=== PATIENT | female | born 1950 | race Caucasian/White ===

== ENCOUNTER 2018-01-09 15:42 | Emergency (ER) | payer MEDICAID, SELFPAY ==
[2018-01-09 15:43] VITALS: BP 157/76; PULSE 59; RESP 18; TEMP 36.6; O2SAT 92; BMI 23.8
--- NOTE | 2018-01-09 16:18 | ED.DCSUM_ITS ---
History of Present Illness Chief Complaint: Cold Sx Informant: Patient Onset: Weeks - 2 Context: Gradual Onset Timing: Continuous Quality: prod cough, congestion Current Severity: Moderate Maximum Severity: Moderate Worsened by: exertion Relieved by: rest Associated Symptoms: subj fevers in beginning now resolved. inc COPD sx/wheezing. no cp. Narrative: Green sputum per nose and coughing up. no leg edema or orthopnea. Has not been seen for this illness yet; PCP on recent maternity leave. Hx of diabetes, states her BS's are well-controlled, except for when she takes prednisone, which she wants to avoid. Prior similar symptoms: Yes - Past Medical History (1) Benign essential HTN Status: Chronic (2) Compression fracture of vertebral column Status: Chronic (3) DM type 2 (diabetes mellitus, type 2) Status: Chronic (4) Diverticulosis of colon without diverticulitis Status: Chronic (5) Hyperlipemia Status: Chronic Past Medical History - Allergies and Home Meds Allergies/Adverse Reactions: Allergies Penicillins Allergy (Verified 01/09/18 15:44) Raymond Primary Care Physician: Georgina Soto,Out of [Primary Care Provider] - Surgical History: appendectomy, cholecystectomy, - - Prior cardiac catheterization which was negative 2002, back surgeries x4, contracts surgery Smoking Status: Former smoker - Family History Maternal Family History: Reports: No pertinent history Review of Systems General: Reports: Fever, Malaise. Denies: Sweats Eyes: Denies: Visual changes - bilaterally, Diplopia ENT: Reports: Rhinorrhea. Denies: Bilateral ear pain, Sore throat Cardiovascular: Denies: Chest pain, Palpitations Respiratory: Reports: Dyspnea, Cough, Sputum, Dyspnea on exertion Gastrointestinal: Denies: Abdominal pain, Nausea, Vomiting, Diarrhea, Melena, Hematochezia Genitourinary: Denies: Dysuria, Hematuria, Frequency Musculoskeletal: Denies: Neck pain, Back pain, Swelling, Extremity Pain Skin: Denies: Rash, Wounds Neurological: Denies: Headache, Weakness, Numbness Physical Exam Vital Signs/Narrative: Vital Signs Temp Pulse Resp BP Pulse Ox 01/09/18 15:43 97.8 F 59 L 18 157/76 H 92 Inital Vital Signs reviewed: Yes General: Well nourished, Well developed Head: Normocephalic, Atraumatic Eyes: Perrl, EOMI ENT: Moist mucous membranes, No rhinorrhea, TM's clear, Nasal congestion. Negative for: Sinus tenderness Neck: Supple, Nontender, No lymphadenopathy, No JVD Cardiovascular: Regular rate, Regular rhythm, - - faint HS Respiratory: No distress, Chest nontender, Wheezing - expiratory throughout all lung lombardi, Diminished - throughout, symmetrically Back: Nontender, Normal Inspection Extremities: Nontender, No edema Skin: Normal color, No rash Neurological: Alert, Oriented x3, Cranial nerves II-XII grossly intact, Normal Strength, Normal Sensation, Normal Gait Psychological: Normal affect Diagnostic/Tx/Re-eval Clinical Impression(s) from Imaging Studies Chest X-Ray 01/09/18 16:45 IMPRESSION: COPD without acute cardiopulmonary disease or major interval change. Electronically Signed: Steve Gillespie DO at 17:09 EST Tel [phone], Service support , - Medical Decision Making X-ray shows no infiltrates, she feels better after nebulizer treatments and again prefers not to be on prednisone which I think is reasonable given her diabetes. I encouraged her to return if she is getting much worse, will place her on Levaquin for now, and advised that she follow-up closely with her doctor if persistent symptoms. She is comfortable with that plan. ED Disposition - Plan for ED Patient: Disposition: Home or Assisted Living Chief Complaint: Cold Sx Diagnosis: COPD exacerbation, Acute bronchitis Instructions: ED COPD Flare Prescriptions: levoFLOXacin tablet [Levaquin] 500 mg PO DAILY #6 tablet Referrals: [facility] Doctor,Out of [Primary Care Provider] - 1 Week if not improving
[2018-01-09 16:22] VITALS: PULSE 61; RESP 16; O2SAT 90
[2018-01-09] MEDS: Ipratropium/Albuterol Sulfate 3 ML AMPUL.NEB INHALATION (16:22)
[2018-01-09] MEDS: Albuterol 2.5 MG/3 ML VIAL.NEB. INHALATION (16:22)
[2018-01-09 16:43] VITALS: O2SAT 90
--- NOTE | 2018-01-09 16:45 | RAD_ITS ---
STUDY: X-RAY CHEST REASON FOR EXAM: Female, 67 years old. Cough. Shortness of breath. Symptoms for several weeks. TECHNIQUE: PA and lateral views of the chest. COMPARISON: July 28, 2014. FINDINGS: There is hyperinflation of the lungs consistent with chronic obstructive lung disease (COPD). No acute mass or infiltrate. There are calcified granulomata are again seen scattered throughout both lungs. There is no demonstrated pleural abnormality. Normal size heart. Normal mediastinum and dev. Normal visualized pulmonary arteries. Normal visualized aortic arch and descending thoracic aorta. There is stable fusion of the thoracolumbar spine. The hardware appears intact. There is degenerative osteoarthritis of the bilateral shoulders. There is no demonstrated abnormality of the visualized soft tissue structures of the upper abdomen. RAD/Chest PA and Lateral IMPRESSION: COPD without acute cardiopulmonary disease or major interval change. Electronically Signed: Steve Gillespie DO at 17:09 EST Tel [phone], Service support ,
[2018-01-09 17:47] VITALS: BP 166/67; PULSE 55; RESP 14; O2SAT 92
[2018-01-09 18:00] VITALS: RESP 12; O2SAT 92
[2018-01-09] MEDS: levoFLOXacin 500 MG Tablet PO (18:21)
--- OUTSIDE RECORDS SUMMARY | 2018-03-07 02:37 | XMS RPT_ITS | Clinical Summary ---
:1950 Author Organization 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 Hypersomnia 56827639 Resolved Toni W Hypersomnia (SNOMED [address] Hypersomnia 87371449 Removed Toni W Hypersomnia (SNOMED [address] BACK PAIN, 544571340 Active Chronic low LUMBOSACRAL, (SNOMED 04/21 04/21 Senthil CALZADA back pain CHRONIC CT) DIABETES 84954824 Active Diabetes MELLITUS, (SNOMED 04/21 04/21 Senthil CALZADA mellitus UNCONTROLLED CT) HYPERCHOLEST 95894548 Active Hypercholestero EROLEMIA (SNOMED 04/21 04/[address]) COPD 53693569 Active Chronic (SNOMED 04/21 04/[address]) lung disease HYPERTENSION 44096558 Active Hypertensive (SNOMED 04/21 04/[address]) Medications Medication Instructions Start Stop Generic Name NDC Provider Date Date STIOLTO 2 puffs INH / TIOTROPIUM [id number] Tammy S RESPIMAT daily 12 BROMIDE-OLODATERO Castaneda BUSINESS LOAN PROCESSOR 2.5-2.5 MCG/ACT L AERS PROAIR HFA 108 2 puffs INH q / ALBUTEROL SULFATE 30559527474 Tammy S (90 Base) 4-6 hours PRN 26 Castaneda BUSINESS LOAN PROCESSOR MCG/ACT AERS Wheezing PULSE OXIMETER Dx: Hypoxemia, / [facility] DEVICES [id number] Toni Iqbal [facility] COPD 07 [place] PROAIR HFA 108 2 puffs INH q / ALBUTEROL SULFATE 06042550209 Tammy S (90 Base) 4-6 hours PRN 02 Castaneda BUSINESS LOAN PROCESSOR MCG/ACT AERS Wheezing LEVAQUIN 500 MG One tablet PO / LEVOFLOXACIN 83283923640 Tammy S TABS daily 18 Castaneda BUSINESS LOAN PROCESSOR PREDNISONE 10 Take 4 tabs by / PREDNISONE 80395895224 Tammy S MG TABS mouth for 3 Castaneda BUSINESS LOAN PROCESSOR days, then 3 tabs by mouth for 3 days, then 2 tabs by mourth for 3 days, then 1 tab by mouth for 3 days. PERCOCET 5-325 One tablet by / OXYCODONE-ACETAMI 88858162922 Corona M MG TABS mouth three 10 JULIA Ndiaye MD times daily as needed NICOTINE 21 1 patch every / NICOTINE 27403635536 Corona M MG/24HR PT24 24 hours 10 Senthil CALZADA NICOTINE 21 1 patch every / NICOTINE 94048985335 Shanda L MG/24HR PT24 24 hours [facility] Two tablets by SULFASALAZINE 94277506599 Shanda L MG TABS mouth twice [facility] daily AZULF[facility]INE 500 Two tablets by SULFASALAZINE 34416327187 Shanda L MG TABS mouth twice / Sidney WEATHER TEACHER daily TRANDATE 300 MG One tablet by LABETALOL HCL 22871452178 Shanda L ORAL TABS mouth twice Sidney WEATHER TEACHER daily MS CONTIN 15 MG q 12 hrs MORPHINE SULFATE 05541910450 Shanda L CR-TABS Sidney WEATHER TEACHER PROMETHAZINE q 6 hrs prn PROMETHAZINE HCL 60610322632 Shanda Gay HCL 25 MG TABS [facility] CLONIDINE HCL One tablet by CLONIDINE HCL 81476418722 Shanda L 0.2 MG TABS mouth twice [facility] daily SIMVASTATIN 20 One tablet by SIMVASTATIN 53223416990 Shanda L MG TABS mouth daily [facility] LISINOPRIL 40 One tablet by LISINOPRIL 33751171595 Matilda MG TABS mouth twice Brittni daily WEATHER TEACHER FUROSEMIDE 20 One tablet by FUROSEMIDE 72191367095 Shanda L MG TABS mouth twice [facility] daily GLUCOTROL XL One tablet by GLIPIZIDE 37244919684 Shanda L 2.5 MG mouth daily [facility] [id number] VENTOLIN HFA 2 puffs q 4 hrs ALBUTEROL SULFATE 03449697201 Shanda Gay 108 (90 Base) prn [facility] MCG/ACT AERS LOMOTIL 4 x q d prn DIPHENOXYLATE-ATR 19356465357 Shanda Gay 2.5-0.025 MG OPINE [facility] TABS TRANDATE 300 MG One tablet by LABETALOL HCL 04602496385 Kimberley Palm ORAL TABS mouth twice [place]nes daily PROAIR HFA 108 2 puffs INH q / ALBUTEROL SULFATE 08579831167 Harper A (90 Base) 4-6 hours PRN Yensho WEATHER TEACHER MCG/ACT AERS Wheezing MIRALAX POWD 17 gm po twice POLYETHYLENE 49783691389 Shanda Gay daily prn GLYCOL 3350 [facility] PROTONIX 40 MG One tablet by PANTOPRAZOLE 07279476608 Shanda Gay TBEC mouth daily SODIUM [facility] ATR[facility]ENT 0.06 % 2 sp EN tid IPRATROPIUM 62886734026 Shanda Gay NASAL SOLN BROMIDE [facility] VITAMIN D 1 x q month ERGOCALCIFEROL 31409609732 Toni Iqbal (ERGOCALCIFEROL [place] ) [address] UNIT CAPS MS CONTIN 15 MG q 12 hrs MORPHINE SULFATE 46843690163 Kimberley Palm CR-TABS [place] PROMETHAZINE q 6 hrs prn PROMETHAZINE HCL 50375267103 Kimberley Palm HCL 25 MG TABS [place] CLONIDINE HCL One tablet by CLONIDINE HCL 95280085317 Kimberley J 0.2 MG TABS mouth twice [place] daily SIMVASTATIN 20 One tablet by SIMVASTATIN 74498617640 Kimberley J MG TABS mouth daily [place] LISINOPRIL 40 One tablet by LISINOPRIL 35036936071 Kimberley J MG TABS mouth twice [place] daily FUROSEMIDE 20 One tablet by FUROSEMIDE 43292551575 Kimberley J MG TABS mouth twice [place] daily GLUCOTROL XL One tablet by GLIPIZIDE 58807838816 Kimberley J 2.5 MG mouth daily [place] [id number] LOMOTIL 4 x q d prn DIPHENOXYLATE-ATR 75651124229 Kimberley J 2.5-0.025 MG OPINE [place] TABS TRANDATE 200 MG Two tablets by / LABETALOL HCL 31911353892 Ellyn E ORAL TABS mouth twice 12 [place] daily FLUTICASONE FLUTICASONE 43821852132 Matilda PROPIONATE 50 PROPIONATE Brittni MCG/ACT SUSP WEATHER TEACHER FLUTICASONE FLUTICASONE 79519056827 Corona Grant PROPIONATE 50 /10 PROPIONATE Senthil CALZADA MCG/ACT SUSP Medication excluded from report: Medication excluded from report: CALAN 120 MG TABS Two tablets VERAPAMIL HCL 95334290751 Matilda by mouth Brittni WEATHER TEACHER twice daily CALAN 120 MG TABS Two tablets VERAPAMIL HCL 79736128144 Shanda L by mouth 11/11 Sidney WEATHER TEACHER twice daily CLONIDINE HCL 0.3 One tablet by CLONIDINE HCL 05107949041 Matilda MG TABS mouth three Brittni WEATHER TEACHER times daily KLOR-CON M10 10 One tablet by POTASSIUM 37132420251 Matilda MEQ CR-TABS mouth daily CHLORIDE KAYLA CR Brittni WEATHER TEACHER KLOR-CON M10 10 One tablet by POTASSIUM 73410954010 Shanda L MEQ CR-TABS mouth daily 11/11 CHLORIDE KAYLA CR Sidney WEATHER TEACHER SIMVASTATIN 40 MG One tablet by SIMVASTATIN 05404687574 Matilda TABS mouth daily Brittni WEATHER TEACHER at bedtime METFORMIN HCL 500 One tablet by METFORMIN HCL 50539982706 Matilda MG TABS mouth twice Brittni WEATHER TEACHER daily METFORMIN HCL 500 One tablet by METFORMIN HCL 69810785855 Shanda L MG TABS mouth twice 11/11 Sidney WEATHER TEACHER daily SERTRALINE HCL Take 1 and SERTRALINE HCL 47674855796 Matilda 100 MG TABS 1/2 tablets Brittni WEATHER TEACHER at bedtime SERTRALINE HCL Take 1 and SERTRALINE HCL 39680079800 Shanda L 100 MG TABS 1/2 tablets 11/11 Sidney WEATHER TEACHER at bedtime ALENDRONATE Take one ALENDRONATE 83521491079 Matilda SODIUM 70 MG TABS tablet weekly SODIUM Brittni WEATHER TEACHER ALENDRONATE Take one ALENDRONATE 45593512408 Shanda L SODIUM 70 MG TABS tablet weekly 11/11 SODIUM Sidney WEATHER TEACHER PERCOCET 5-325 MG One tablet by OXYCODONE-ACETAMI 18760310055 Shanda L TABS mouth three 04/21 11/11 NOPHEN Sidney WEATHER TEACHER times daily as needed LEVAQUIN 500 MG One tablet PO LEVOFLOXACIN 11722494413 Tammy S TABS daily 05/30 09/13 Castaneda BUSINESS LOAN PROCESSOR SPIRIVA 1 puff q d TIOTROPIUM 60701622695 Shanda L HANDIHALER 18 MCG BROMIDE Sidney WEATHER TEACHER CAPS MONOHYDRATE SPIRIVA 1 puff q d TIOTROPIUM 81619198572 Tammy S HANDIHALER 18 MCG 09/13 BROMIDE Castaneda BUSINESS LOAN PROCESSOR CAPS MONOHYDRATE VENTOLIN HFA 108 2 puffs q 4 ALBUTEROL SULFATE 17364850244 Kimberley J (90 Base) MCG/ACT hrs prn Haynes AERS VENTOLIN HFA 108 2 puffs q 4 ALBUTEROL SULFATE 98308477067 Harper A (90 Base) MCG/ACT hrs prn 02/18 Yensho WEATHER TEACHER AERS FLONASE ALLERGY qd FLUTICASONE 00791274239 Ellyn E RELIEF 50 MCG/ACT 05/30 PROPIONATE Tullar SUSP Medications Administered No information available. Allergies, Adverse Reactions, Alerts Allergy Name Reaction Description Start Date Severity Status Provider PENICILLIN hives Severe Active Matilda Brittni WEATHER TEACHER Results Date Name Value Unit Range Flag Description Lab Report: BMP CHLORIDE 93 mmol/L 98-107 L chloride, serum POTASSIUM 3.5 mmol/L 3.5-5.1 N potassium, serum SODIUM 135 mmol/L 136-145 L sodium, serum CALCIUM 8.6 mg/dL 8.5-10.1 N calcium, serum CREATININE 1.2 mg/dL 0.6-1.0 H creatinine, serum BUN 19 mg/dL 7-18 H urea nitrogen, blood GLUCOSE SER 118 mg/dL 70-110 H blood glucose Lab Report: LIVER BILI DIRECT 0.15 mg/dL 0.00-0.30 N bilirubin, serum, direct BILI TOTAL 0.40 mg/dL 0.00-1.00 N bilirubin, serum, total SGPT (ALT) 22 U/L 12-78 N alanine aminotransferase (SGPT), serum ALK PHOS 149 U/L 50-136 H alkaline phosphatase, serum SGOT (AST) 21 U/L 15-37 N aspartate aminotransferase (SGOT), serum ALBUMIN 3.5 g/dL 3.4-5.0 N albumin, serum Lab Report: LIPID VLDL 20 mg/dL 5-40 N very low density lipoproteins LDL 49 mg/dL 0-130 N Cholesterol in LDL [Mass/volume] in Serum or Plasma HDL 43 mg/dL N Cholesterol in HDL [Mass/volume] in Serum or Plasma TRIGLYCRDES 99 mg/dL N Triglyceride [Mass/volume] in Serum or Plasma CHOLESTEROL 112 mg/dL 200 N Cholesterol [Mass/volume] in Serum or Plasma Lab Report: T4 T4, TOTAL 8.4 ug/dL 4.8-13.9 N thyroxine, serum, total Lab Report: TSH TSH 2.85 u[iU]/mL 0.358-3.74 N thyroid stimulating hormone, serum Lab Report: A1C [id number] 6.4 % 4.2-6.3 H GE use only - for [employer] import when terms are not otherwise specified Office Visit: COPD & RAUL SMOK ADVICE yes Smoking cessation education (procedure) Office Visit: COPD, RAUL MEDS REVIEW Done Documentation of current medications (procedure) ORALTOBACUSE Never Tobacco smoking status NHIS SMOK STATUS Former smoker Tobacco use [facility] Rx Refill: eRx Request for STIOLTO RESPIMAT 2.5-2.5 MCG/ACT INH AERS [facility]_RR [id number]`STIOLTO B e-scripts RESPIMAT 2.5-2.5 MCG/ACT INH AERS```4 messenger Unspecified`30`2 puffs INH refill request daily``4`0`05/02/2016`08/03/2016`[facility]*`[id number]``STIOLTO RESPIMAT INHAL SPRAY Quantity: 4 Inhaler Instructions: inhale 2 puffs once daily Plan of Care Type Date Detail Pending order Follow Up Appt 3 months Pending order CSM Pending order Pulmonary stress testing; simple (eg, 6-minute walk) Pending order Pulmonary Function Test - complete Pending order BWA Pending order Follow Up Appt 3 months Pending order Follow Up Appt 3 months Pending order Follow Up Appt 3 months Pending order CSM Pending order Pulmonary Function Test - complete Pending order Pulmonary stress testing; simple (eg, 6-minute walk) Pending order Complete sleep workup (PSG,CPAP as indicated) & Follow up Pending order Follow Up Appt 3 months Pending order *HgA1C Pending order *Lipid Profile Pending order *Liver/Hepatic Function Panel Pending order *BMP Pending order *Thyroid Profile (T3,T4,TSH) Procedures Code Procedure Name Date Entry Date CPT-83331 Pulmonary stress testing; simple (eg, 6-minute walk) PFT Pulmonary Function Test - complete F/U BWA BWA FUA 3 months Follow Up Appt 3 months FUA 3 months Follow Up Appt 3 months CPT-00771 Inhaler Training FUA 3 months Follow Up Appt 3 months F/U CSM CSM PFT Pulmonary Function Test - complete CPT-66504 Pulmonary stress testing; simple (eg, 6-minute walk) CS Complete sleep workup (PSG,CPAP as indicated) & Follow up FUA 3 months Follow Up Appt 3 months [id number] SNOMED-CT: 348621995 Smoking Cessation Counseling [id number] SNOMED-CT: [id number] Current Medications Documented [id number] SNOMED-CT: 818779736 Smoking Cessation Counseling [id number] SNOMED-CT: [id number] Current Medications Documented CPT-23270 *HgA1C CPT-57584 *Lipid Profile CPT-17752 *Liver/Hepatic Function Panel CPT-37113 *BMP CPT-99827 *Thyroid Profile (T3,T4,TSH) Vital Signs Date Name Value Unit Description BMI (Body Mass Index) 23.53 kg/m2 Body Mass Index [Ratio] Body Temperature 98.2 [degF] temperature E&M Body Temperature 36.8 Gala temperature in centigrade E&M BP Diastolic 95 mm[Hg] blood pressure, diastolic - 8462-4 BP Systolic 161 mm[Hg] blood pressure, systolic - 8480-6 BSA (Body Surface Area) 1.77 body surface area Heart Rate 82 /min pulse rate E&M - 8867-4 Height 66.5 [in_us] height E&M - 8302-2 Height 168.91 cm height in centimeters E&M Respiratory Rate 18 /min respiratory rate E&M - 9279-1 Weight Measured 148 [lb_av] weight E&M - 3141-9
--- OUTSIDE RECORDS SUMMARY | 2018-03-07 02:38 | XMS RPT_ITS | Clinical Summary ---
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 Hypersomnia 49222568 Resolved Toni W Hypersomnia (SNOMED [address] Hypersomnia 86224374 Removed Toni W Hypersomnia (SNOMED [address] BACK PAIN, 690767236 Active Chronic low LUMBOSACRAL, (SNOMED 04/21 04/21 Senthil CALZADA back pain CHRONIC CT) DIABETES 81299122 Active Diabetes MELLITUS, (SNOMED 04/21 04/21 Senthil CALZADA mellitus UNCONTROLLED CT) HYPERCHOLEST 32997095 Active Hypercholestero EROLEMIA (SNOMED 04/21 04/[address]) COPD 94524752 Active Chronic (SNOMED 04/21 04/[address]) lung disease HYPERTENSION 99612109 Active Hypertensive (SNOMED 04/21 04/[address]) Medications Medication Instructions Start Stop Generic Name NDC Provider Date Date PROAIR HFA 108 2 puffs INH q / ALBUTEROL [id number] Tammy S (90 Base) 4-6 hours PRN 26 SULFATE Castaneda FERMENTER CHAMPAGNE MCG/ACT AERS Wheezing STIOLTO 2 puffs INH / TIOTROPIUM 45301416306 Tammy S RESPIMAT daily 12 BROMIDE-OLODATER Castaneda FERMENTER CHAMPAGNE 2.5-2.5 MCG/ACT OL AERS PULSE OXIMETER Dx: [place]oxemia, / [facility] [id number] Toni Iqbal [facility] [place] 07 [place] PROAIR HFA 108 2 puffs INH q / ALBUTEROL 67334205535 Tammy S (90 Base) 4-6 hours PRN 02 SULFATE Castaneda FERMENTER [place]AMPAGNE MCG/ACT AERS Wheezing LEVAQUIN 500 MG One tablet PO / LEVOFLOXACIN 81602685670 Tammy S TABS daily 18 Castaneda FERMENTER CHAMPAGNE PREDNISONE 10 Take 4 tabs by / PREDNISONE 37262875887 Tammy S MG TABS mouth for 3 Castaneda FERMENTER CHAMPAGNE days, then 3 tabs by mouth for 3 days, then 2 tabs by mourth for 3 days, then 1 tab by mouth for 3 days. PERCOCET 5-325 One tablet by / OXYCODONE-ACETAM 01444956004 Corona M MG TABS mouth three 10 INOPHEN Senthil CALZADA times daily as needed NICOTINE 21 1 patch every / NICOTINE 09037762880 Corona M MG/24HR PT24 24 hours 10 Senthil CALZADA NICOTINE 21 1 patch every / NICOTINE 53733660420 Shanda L MG/24HR PT24 24 hours [facility] Two tablets by SULFASALAZINE 61495651526 Shanda L MG TABS mouth twice [facility] daily AZULF[facility]INE 500 Two tablets by SULFASALAZINE 21800105640 Shanda L MG TABS mouth / [place] RESEARCH ADMINISTRATOR daily TRANDATE 300 MG One tablet by LABETALOL HCL 57773576281 Shanda L ORAL TABS mouth twice [place] RESEARCH ADMINISTRATOR daily MS CONTIN 15 MG q 12 hrs MORPHINE SULFATE 94212988822 Shanda L CR-TABS [place] RESEARCH ADMINISTRATOR PROMETHAZINE q 6 hrs prn PROMETHAZINE HCL 06895177271 Shanda Gay HCL 25 MG TABS [facility] CLON[facility] HCL One tablet by CLONIDINE HCL 64273399701 Shanda L 0.2 MG TABS mouth twice [place] RESEARCH ADMINISTRATOR daily SIMVASTATIN 20 One tablet by SIMVASTATIN 71147315367 Shanda L MG TABS mouth daily [facility] LISINOPRIL 40 One tablet by LISINOPRIL 69072901954 Matilda MG TABS mouth twice Brittni daily RESEARCH ADMINISTRATOR FUROSEMIDE 20 One tablet by FUROSEMIDE 66056305814 Shanda L MG TABS mouth twice [place] RESEARCH ADMINISTRATOR daily GLUCOTROL XL One tablet by GLIPIZIDE 44946476904 Shanda L 2.5 MG mouth daily [facility] [id number] VENTOLIN HFA 2 puffs q 4 hrs ALBUTEROL 89234556206 Shanda Gay 108 (90 Base) prn SULFATE [facility] MCG/ACT AERS LOMOTIL 4 x q d prn DIPHENOXYLATE-AT 70523723680 Shanda Gay 2.5-0.025 MG ROPINE [facility] TABS TRANDATE 300 MG One tablet by LABETALOL HCL 29406087779 Kimberley Palm ORAL TABS mouth twice [place] daily PROAIR HFA 108 2 puffs INH q / ALBUTEROL 02302282003 Harper A (90 Base) 4-6 hours PRN 02 /07 SULFATE Yensho RESEARCH ADMINISTRATOR MCG/ACT AERS Wheezing MIRALAX POWD 17 gm po twice POLYETHYLENE 94540009999 Shanda Gay daily prn GLYCOL 3350 [facility] PROTONIX 40 MG One tablet by PANTOPRAZOLE 46445064500 Shanda Gay TBEC mouth daily SODIUM [facility] ATROVENT 0.06 % 2 sp EN tid IPRATROPIUM 58417048952 Shanda Gay NASAL SOLN BROMIDE [facility] VIT[facility] D 1 x q month ERGOCALCIFEROL 37705343273 Toni W (ERGOCALCIFEROL [place] ) [address] UNIT CAPS MS CONTIN 15 MG q 12 hrs MORPHINE SULFATE 12610925110 Kimberley Palm CR-TABS [place] PROMETHAZINE q 6 hrs prn PROMETHAZINE HCL 38874152006 Kimberley Palm HCL 25 MG TABS [place] CLONIDINE HCL One tablet by CLONIDINE HCL 38200505126 Kimberley Palm 0.2 MG TABS mouth twice [place] daily SIMVASTATIN 20 One tablet by SIMVASTATIN 38075129107 Kimberley J MG TABS mouth daily [place] LISINOPRIL 40 One tablet by LISINOPRIL 64052126906 Kimberley J MG TABS mouth twice [place] daily FUROSEMIDE 20 One tablet by FUROSEMIDE 68366702078 Kimberley J MG TABS mouth twice [place] daily GLUCOTROL XL One tablet by GLIPIZIDE 34380738577 Kimberley J 2.5 MG mouth daily [place] [id number] LOMOTIL 4 x q d prn DIPHENOXYLATE-AT 73799082616 Kimberley J 2.5-0.025 MG ROPINE [place] TABS TRANDATE 200 MG Two tablets by / LABETALOL HCL 93580366612 Ellyn E ORAL TABS mouth twice 12 [place] daily FLUTICASONE FLUTICASONE 47967148206 Matilda PROPIONATE 50 PROPIONATE Brittni MCG/ACT SUSP RESEARCH ADMINISTRATOR FLUTICASONE FLUTICASONE 79939352396 Corona Grant PROPIONATE 50 /10 PROPIONATE Senthil CALZADA MCG/ACT SUSP Medication excluded from report: Medication excluded from report: CALAN 120 MG Two tablets VERAPAMIL HCL 17524324130 Matilda TABS by mouth Brittni RESEARCH ADMINISTRATOR twice daily CALAN 120 MG Two tablets 2014/ VERAPAMIL HCL 56058167889 Shanda L TABS by mouth 11/11 [place] RESEARCH ADMINISTRATOR twice daily CLONIDINE HCL One tablet CLONIDINE HCL 56676820572 Matilda 0.3 MG TABS by mouth Brittni RESEARCH ADMINISTRATOR three times daily KLOR-CON M10 10 One tablet POTASSIUM 66665653115 Matilda MEQ CR-TABS by mouth CHLORIDE KAYLA CR Brittni RESEARCH ADMINISTRATOR daily KLOR-CON M10 10 One tablet 2015/ POTASSIUM 38893863532 Shanda L MEQ CR-TABS by mouth 30 CHLORIDE KAYLA CR [place] RESEARCH ADMINISTRATOR daily SIMVASTATIN 40 One tablet SIMVASTATIN 56665610879 Matilda MG TABS by mouth Brittni RESEARCH ADMINISTRATOR daily at bedtime METFORMIN HCL One tablet METFORMIN HCL 49970328436 Matilda 500 MG TABS by mouth Brittni RESEARCH ADMINISTRATOR twice daily METFORMIN HCL One tablet 2015/ METFORMIN HCL 72766226662 Shanda L 500 MG TABS by mouth 11/11 [place] RESEARCH ADMINISTRATOR twice daily SERTRALINE HCL Take 1 and SERTRALINE HCL 39299868157 Matilda 100 MG TABS 1/2 tablets Brittni RESEARCH ADMINISTRATOR at bedtime SERTRALINE HCL Take 1 and 2014/ SERTRALINE HCL 12209177714 Shanda L 100 MG TABS 1/2 tablets 11/11 [place] RESEARCH ADMINISTRATOR at bedtime ALENDRONATE Take one ALENDRONATE 45510752579 Matilda SODIUM 70 MG tablet SODIUM Brittni RESEARCH ADMINISTRATOR TABS weekly ALENDRONATE Take one 2014/ ALENDRONATE 37961803537 Shanda L SODIUM 70 MG tablet 11/11 SODIUM [place] RESEARCH ADMINISTRATOR TABS weekly PERCOCET 5-325 One tablet 2014/ OXYCODONE-ACETAMI 22414318279 Shanda L MG TABS by mouth 04/21 11/11 NOPHEN [place] RESEARCH ADMINISTRATOR three times daily as needed LEVAQUIN 500 MG One tablet 2015/ LEVOFLOXACIN 31795529018 Tammy S TABS PO daily 05/30 09/13 Castaneda FERMENTER CHAMPAGNE SPIRIVA 1 puff q d TIOTROPIUM 11236908361 Shanda L HANDIHALER 18 BROMIDE [place] RESEARCH ADMINISTRATOR MCG CAPS MONOHYDRATE SPIRIVA 1 puff q d 2015/ TIOTROPIUM 71626159318 Tammy S HANDIHALER 18 09/13 BROMIDE Castaneda FERMENTER CHAMPAGNE MCG CAPS MONOHYDRATE VENTOLIN HFA 108 2 puffs q 4 ALBUTEROL SULFATE 99240598890 Kimberley J (90 Base) hrs prn [place] MCG/ACT AERS VENTOLIN HFA 108 2 puffs q 4 2015/ ALBUTEROL SULFATE 02109216653 Harper A (90 Base) hrs prn 12/19 Yensho RESEARCH ADMINISTRATOR MCG/ACT AERS FLONASE ALLERGY qd 2015/ FLUTICASONE 81918442891 Ellyn E RELIEF 50 05/30 PROPIONATE [place] MCG/ACT SUSP Medications Administered No information available. Allergies, Adverse Reactions, Alerts Allergy Name Reaction Start Date Severity Status Provider Description PENICILLIN hives Severe Active Matilda Brittni RESEARCH ADMINISTRATOR Results Date Name Value Unit Range Flag [...] Tobacco smoking status NHIS SMOK STATUS Former Tobacco use [facility] smoker Rx Refill: eRx Request for PROAIR HFA 108 (90 BASE) MCG/ACT INH AERS [facility]_RR [id number]`PROAIR B e-scripts HFA 108 (90 BASE) MCG/ACT INH AERS```8.5 messenger Inhaler`16`2 puffs INH q 4-6 hours PRN refill Wheezing``3`0`09/14/2015`04/07/2016`[facility]*`[id number]``PROAIR HFA 90 MCG INHALER Quantity: 8.5 Inhaler Instructions: inhale 2 puffs by mouth every 4 to 6 hours if needed for wheezing Plan of Care Type Date Detail Pending [...] Procedures Code Procedure Name Date Entry Date CPT-04013 Pulmonary stress testing; simple (eg, 6-minute walk) PFT Pulmonary Function Test - complete F/U BWA BWA FUA 3 months Follow Up Appt 3 months FUA 3 months Follow Up Appt 3 months CPT-30932 Inhaler Training FUA 3 months Follow Up Appt 3 months F/U CSM CSM PFT Pulmonary Function Test - complete CPT-44524 Pulmonary stress testing; simple (eg, 6-minute walk) CS Complete sleep workup (PSG,CPAP as indicated) & Follow up FUA 3 months Follow Up Appt 3 months [id number] SNOMED-CT: 079609866 Smoking Cessation Counseling SCT-[id number] SNOMED-CT: 784402627067629 Current Medications Documented SCT-[id number] SNOMED-CT: 938349387 Smoking Cessation Counseling SCT-[id number] SNOMED-CT: 558021749908371 Current Medications Documented CPT-56912 *HgA1C CPT-69573 *Lipid Profile CPT-45090 *Liver/Hepatic Function Panel CPT-57105 *BMP CPT-20891 *Thyroid Profile (T3,T4,TSH) Vital Signs Date Name Value Unit Description BMI (Body Mass Index) 23.53 kg/m2 Body Mass Index [Ratio] Body Temperature 98.2 [degF] temperature E&M Body Temperature 36.8 Gala temperature in centigrade E&M BP Diastolic 95 mm[Hg] blood pressure, diastolic - 8462-4 BP Systolic 161 mm[Hg] blood pressure, systolic - 8480-6 BSA (Body Surface 1.77 body surface area Area) Heart Rate 82 /min pulse rate E&M - 8867-4 Height 66.5 [in_us] height E&M - 8302-2 Height 168.91 cm height in centimeters E&M O2 % BldC Oximetry 94 % oxygen saturation, oximetry Respiratory Rate 18 /min respiratory rate E&M - 9279-1 Weight Measured 148 [lb_av] weight E&M - 3141-9 Weight Measured 67.27 kg weight in kilograms E&M
--- OUTSIDE RECORDS SUMMARY | 2018-03-07 02:38 | XMS RPT_ITS | Clinical Summary ---
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 Hypersomnia 88938147 Resolved Toni W Hypersomnia (SNOMED [address] Hypersomnia 23178784 Removed Toni W Hypersomnia (SNOMED [address] BACK PAIN, 980155628 Active Chronic low LUMBOSACRAL, (SNOMED 04/21 04/21 Senthil CALZADA back pain CHRONIC CT) DIABETES 53811248 Active Diabetes MELLITUS, (SNOMED 04/21 04/21 Senthil CALZADA mellitus UNCONTROLLED CT) HYPERCHOLEST 61235000 Active Hypercholestero EROLEMIA (SNOMED 04/21 04/[address]) COPD 23048866 Active Chronic (SNOMED 04/21 04/[address] CT) lung disease HYPERTENSION 26217041 Active Hypertensive (SNOMED 04/21 04/[address]) Medications Medication Instructions Start Stop Generic Name NDC Provider Date Date STIOLTO 2 puffs INH / TIOTROPIUM 28126068800 Tammy S RESPIMAT daily 12 BROMIDE-OLODATERO Castaneda SENIOR PYTHON DEVELOPER 2.5-2.5 MCG/ACT L AERS PROAIR HFA 108 2 puffs INH q / ALBUTEROL SULFATE 42211443176 Tammy S (90 Base) 4-6 hours PRN 26 Castaneda SENIOR PYTHON DEVELOPER MCG/ACT AERS Wheezing PULSE OXIMETER Dx: Hypoxemia, / [facility]. DEVICES [id number] Toni W COPD 07 [place] PROAIR HFA 108 2 puffs INH q / ALBUTEROL SULFATE 52915634349 Tammy S (90 Base) 4-6 hours PRN 02 Castaneda SENIOR PYTHON DEVELOPER MCG/ACT AERS Wheezing LEVAQUIN 500 MG One tablet PO / LEVOFLOXACIN 26851141563 Tammy S TABS daily 18 Castaneda SENIOR PYTHON DEVELOPER PREDNISONE 10 Take 4 tabs by / PREDNISONE 03928922867 Tammy S MG TABS mouth for 3 Castaneda SENIOR PYTHON DEVELOPER days, then 3 tabs by mouth for 3 days, then 2 tabs by mourth for 3 days, then 1 tab by mouth for 3 days. PERCOCET 5-325 One tablet by / OXYCODONE-ACETAMI 45517170123 Corona M MG TABS mouth three 10 JULIA Ndiaye MD times daily as needed NICOTINE 21 1 patch every / NICOTINE 26294533119 Corona M MG/24HR PT24 24 hours 10 Senthil CALZADA NICOTINE 21 1 patch every / NICOTINE 61044198242 Shanda L MG/24HR PT24 24 [facility] Two tablets by SULFASALAZINE 93069670801 Shanda L MG TABS mouth twice [facility] daily AZULFIDINE 500 Two tablets by SULFASALAZINE 96937674560 Shanda L MG TABS mouth / [facility] daily TRANDATE 300 MG One tablet by LABETALOL HCL 54526185833 Shanda L TABS mouth twice [facility] daily MS CONTIN 15 MG q 12 hrs MORPHINE SULFATE 53643654454 Shanda L CR-TABS [facility] PROM[facility] q 6 hrs prn PROMETHAZINE HCL 70342271187 Shanda Deidra HCL 25 MG TABS [facility] CLONIDINE HCL One tablet by CLONIDINE HCL 94742179485 Shanda L 0.2 MG TABS mouth twice [facility] daily SIMVASTATIN 20 One tablet by SIMVASTATIN 50192667737 Shanda L MG TABS mouth daily [facility] LISINOPRIL 40 One tablet by LISINOPRIL 29668415601 Matilda MG TABS mouth twice Brittni daily PRODUCT DEVELOPMENT SCIENTIST FUROSEMIDE 20 One tablet by FUROSEMIDE 55978221882 Shanda L MG TABS mouth twice [facility] daily GLUCOTROL XL One tablet by GLIPIZIDE 32899610023 Shanda L 2.5 MG mouth daily [facility] [id number]-QUB VENTOLIN HFA 2 puffs q 4 hrs ALBUTEROL SULFATE 08485054219 Shanda L 108 (90 Base) prn [facility] MCG/ACT AERS LOMOTIL 4 x q d prn DIPHENOXYLATE-ATR 91874390249 Shanda Gay 2.5-0.025 MG OPINE [facility] TABS TRANDATE 300 MG One tablet by LABETALOL HCL 40326551488 Kimberley Palm TABS mouth twice [place] daily PROAIR HFA 108 2 puffs INH q / ALBUTEROL SULFATE 36778002277 Harper A (90 Base) 4-6 hours PRN Yensho PRODUCT DEVELOPMENT SCIENTIST MCG/ACT AERS Wheezing MIRALAX POWD 17 gm po twice POLYETHYLENE 75672851420 Shanda L daily prn GLYCOL 3350 [facility] PROTONIX 40 MG One tablet by PANTOPRAZOLE 37489931950 Shanda Gay TBEC mouth daily SODIUM [facility] ATROVENT 0.06 % 2 sp EN tid IPRATROPIUM 68581522198 Shanda Gay SOLN BROMIDE [facility] VITAMIN D 1 x q month ERGOCALCIFEROL 03257624584 Toni W (ERGOCALCIFEROL [place] ) 0[address]71 UNIT CAPS MS CONTIN 15 MG q 12 hrs MORPHINE SULFATE 99318500355 Kimberley Palm CR-TABS [place] PROMETHAZINE q 6 hrs prn PROMETHAZINE HCL 14828623079 Kimberley Palm HCL 25 MG TABS [place] CLONIDINE HCL One tablet by CLONIDINE HCL 80504870846 Kimberley Palm 0.2 MG TABS mouth twice [place] daily SIMVASTATIN 20 One tablet by SIMVASTATIN 54578021774 Kimberley J MG TABS mouth daily [place] LISINOPRIL 40 One tablet by LISINOPRIL 81937075446 Kimberley J MG TABS mouth twice [place] daily FUROSEMIDE 20 One tablet by FUROSEMIDE 89369173388 Kimberley J MG TABS mouth twice [place] daily GLUCOTROL XL One tablet by GLIPIZIDE 17006837378 Kimberley J 2.5 MG mouth daily [place] [id number] LOMOTIL 4 x q d prn DIPHENOXYLATE-ATR 79264767673 Kimberley J 2.5-0.025 MG OPINE [place] TABS TRANDATE 200 MG Two tablets by / LABETALOL HCL 67120028633 Ellyn E TABS mouth twice 12 [place] daily FLUTICASONE FLUTICASONE 84230758491 Matilda PROPIONATE 50 PROPIONATE Brittni MCG/ACT SUSP PRODUCT DEVELOPMENT SCIENTIST FLUTICASONE FLUTICASONE 76147221452 Corona Grant PROPIONATE 50 /10 PROPIONATE Senthil CALZADA MCG/ACT SUSP Medication excluded from report: Medication excluded from report: CALAN 120 MG TABS Two tablets VERAPAMIL HCL 19839225906 Matilda by mouth Brittni PRODUCT DEVELOPMENT SCIENTIST twice daily CALAN 120 MG TABS Two tablets VERAPAMIL HCL 16481923241 Shanda L by mouth 11/11 [place] PRODUCT DEVELOPMENT SCIENTIST twice daily CLONIDINE HCL 0.3 One tablet by CLONIDINE HCL 63497905638 Matilda MG TABS mouth three Brittni PRODUCT DEVELOPMENT SCIENTIST times daily KLOR-CON M10 10 One tablet by POTASSIUM 22621908299 Matilda MEQ CR-TABS mouth daily CHLORIDE KAYLA CR Brittni PRODUCT DEVELOPMENT SCIENTIST KLOR-CON M10 10 One tablet by POTASSIUM 52696446454 Shanda L MEQ CR-TABS mouth daily 11/11 CHLORIDE KAYLA CR [place] PRODUCT DEVELOPMENT SCIENTIST SIMVASTATIN 40 MG One tablet by SIMVASTATIN 61170366296 Matidla TABS mouth daily Brittni PRODUCT DEVELOPMENT SCIENTIST at bedtime METFORMIN HCL 500 One tablet by METFORMIN HCL 66093242955 Matilda MG TABS mouth twice Brittni PRODUCT DEVELOPMENT SCIENTIST daily METFORMIN HCL 500 One tablet by METFORMIN HCL 51335190791 Shanda L MG TABS mouth twice 11/11 [place] PRODUCT DEVELOPMENT SCIENTIST daily SERTRALINE HCL Take 1 and SERTRALINE HCL 71546098244 Matilda 100 MG TABS 1/2 tablets Brittni PRODUCT DEVELOPMENT SCIENTIST at bedtime SERTRALINE HCL Take 1 and SERTRALINE HCL 56320178891 Shanda L 100 MG TABS 1/2 tablets 11/11 [place] PRODUCT DEVELOPMENT SCIENTIST at bedtime ALENDRONATE Take one ALENDRONATE 16389669460 Matilda SODIUM 70 MG TABS tablet weekly SODIUM Brittni PRODUCT DEVELOPMENT SCIENTIST ALENDRONATE Take one ALENDRONATE 63664666533 Shanda L SODIUM 70 MG TABS tablet weekly 11/11 SODIUM [place] PRODUCT DEVELOPMENT SCIENTIST PERCOCET 5-325 MG One tablet by OXYCODONE-ACETAMI 87140710461 Shanda L TABS mouth three 04/21 11/11 NOPHEN [place] PRODUCT DEVELOPMENT SCIENTIST times daily as needed LEVAQUIN 500 MG One tablet PO LEVOFLOXACIN 83402490218 Tammy S TABS daily 05/30 09/13 Castaneda SENIOR PYTHON DEVELOPER SPIRIVA 1 puff q d TIOTROPIUM 83903947901 Shanda L HANDIHALER 18 MCG BROMIDE [place] PRODUCT DEVELOPMENT SCIENTIST CAPS MONOHYDRATE SPIRIVA 1 puff q d TIOTROPIUM 34921113977 Tammy S HANDIHALER 18 MCG 09/13 BROMIDE Castaneda SENIOR PYTHON DEVELOPER CAPS MONOHYDRATE VENTOLIN HFA 108 2 puffs q 4 ALBUTEROL SULFATE 04008646379 Kimberley J (90 Base) MCG/ACT hrs prn [place] AERS VENTOLIN HFA 108 2 puffs q 4 ALBUTEROL SULFATE 19329905994 Harper A (90 Base) MCG/ACT hrs prn 02/18 Yensho PRODUCT DEVELOPMENT SCIENTIST AERS FLONASE ALLERGY qd FLUTICASONE 25412371154 Ellyn E RELIEF 50 MCG/ACT 05/30 PROPIONATE [place] SUSP Medications Administered No information available. Allergies, Adverse Reactions, Alerts Allergy Name Reaction Description Start Date Severity Status Provider PENICILLIN hives Severe Active Matilda Brittni PRODUCT DEVELOPMENT SCIENTIST Results Date Name Value Unit Range Flag [...] NHIS SMOK STATUS Former smoker Tobacco use [facility] Rx Refill: eRx Request for STIOLTO RESPIMAT 2.5-2.5 MCG/ACT INH AERS [facility]_ [id number]`STIOLTO B e-scripts RESPIMAT 2.5-2.5 MCG/ACT INH AERS```4 messenger Unspecified`30`2 puffs INH refill request daily``4`0`08/30/2016`11/26/2016`[facility]*`[id number]``STIOLTO RESPIMAT INHAL SPRAY Quantity: 4 Inhaler Instructions: inhale 2 puffs by mouth once daily Plan of Care Type Date [...] Procedures Code Procedure Name Date Entry Date [facility]-00241 Pulmonary stress testing; simple (eg, 6-minute walk) PFT Pulmonary Function Test - complete F/U BWA BWA FUA 3 months Follow Up Appt 3 months FUA 3 months Follow Up Appt 3 months CPT-02683 Inhaler Training FUA 3 months Follow Up Appt 3 months F/U [facility] CSM PFT Pulmonary Function Test - complete CPT-57869 Pulmonary stress testing; simple (eg, 6-minute walk) CS Complete sleep workup (PSG,CPAP as indicated) & Follow up FUA 3 months Follow Up Appt 3 months SCT-[id number] SNOMED-CT: 933990229 Smoking Cessation Counseling SCT-[id number] SNOMED-CT: 326466748330565 Current Medications Documented SCT-377649815 SNOMED-CT: 796813364 Smoking Cessation Counseling SCT-482772520555393 SNOMED-CT: 555176463502857 Current Medications Documented CPT-32785 *HgA1C CPT-85111 *Lipid Profile CPT-42336 *Liver/Hepatic Function Panel CPT-28256 *BMP CPT-05509 *Thyroid Profile (T3,T4,TSH) Vital Signs Date Name [...]
--- OUTSIDE RECORDS SUMMARY | 2018-03-07 02:38 | XMS RPT_ITS ---
:1950 Author Organization OHIP Care Team Providers Name Role Phone TRACI OROZCO ([employer]) Attending Unavailable TRACI OROZCO ([employer]) Referring Unavailable TRACI OROZCO ([employer]) Attending Unavailable TRACI OROZCO ([employer]ER) Referring Unavailable TRACI OROZCO ([employer]ER) Attending Unavailable TRACI OROZCO ([employer]) Referring Unavailable TRACI OROZCO ([employer]ER) Attending Unavailable TRACI OROZCO ([employer]) Referring Unavailable Bharat Mireles Attending Unavailable LISHNEVSKI, BARI Referring Unavailable UNKNOWN, PROVIDER Primary Care Unavailable UNKNOWN, PROVIDER Attending Unavailable LISHNEVSKI, BARI Referring Unavailable UNKNOWN, PROVIDER Primary Care Unavailable UNKNOWN, PROVIDER Attending Unavailable LISHNEVSKI, BARI Referring Unavailable UNKNOWN, PROVIDER Primary Care Unavailable UNKNOWN, PROVIDER Attending Unavailable LISHNEVSKI, BARI Referring Unavailable UNKNOWN, PROVIDER Primary Care Unavailable UNKNOWN, PROVIDER Attending Unavailable LISHNEVSKI, BARI Referring Unavailable UNKNOWN, PROVIDER Primary Care Unavailable UNKNOWN, PROVIDER Attending Unavailable LISHNEVSKI, BARI Referring Unavailable UNKNOWN, PROVIDER Primary Care Unavailable Bharat Mireles Attending Unavailable BARI HEBERT Referring Unavailable UNKNOWN, PROVIDER Primary Care Unavailable RJ MEDELLIN Attending Unavailable EMMETT AVILES Primary Care Unavailable PROBLEMS PROBLEMS DATE TYPE CONDITION / CODE ATTENDING STATUS SOURCE 12/24/2017 Admitting Chronic kidney Mireles, Active [facility] Diagnosis disease, stage 3 [place] System (moderate) / Repository N18.3(ICD-10) 11/06/2017 Admitting Other emphysema / Unknown Active [facility] Diagnosis J43.8(ICD-10) System Repository 10/31/2017 Admitting Age-related Unknown Active [facility] Diagnosis osteoporosis w/o System current pathological Repository fracture / M81.0(ICD-10) 10/26/2017 Admitting Asymptomatic Unknown Active [facility] Diagnosis menopausal state / System Z78.0(ICD-10) Repository 10/26/2017 Admitting Type 2 diabetes Unknown Active [facility] Diagnosis mellitus without System complications / Repository E11.9(ICD-10) 10/26/2017 Admitting Atherosclerosis of Unknown Active [facility] Diagnosis renal artery / System I70.1(ICD-10) Repository 10/26/2017 Admitting Encounter for Unknown Active [facility] Diagnosis screening for System malignant neoplasm Repository of colon / Z12.11(ICD-10) 10/10/2017 Admitting Cough / R05(ICD-10) Unknown Active [facility] Diagnosis System Repository 10/10/2017 Admitting Emphysema, Unknown Active [facility] Diagnosis unspecified / System J43.9(ICD-10) Repository 06/15/2017 Admitting Edema, unspecified / Mireles, Active [facility] Diagnosis R60.9(ICD-10) [place] System Repository 04/24/2017 Active Other chronic pain / TRACI OROZCO Active [facility] G89.29(ICD-10) ([employer]) Clinic Main [place] Repository 04/24/2017 Active Pain in thoracic TRACI OROZCO Active [facility] spine / ([employer]) Clinic Main M54.6(ICD-10) [place] Repository 09/22/2015 Active Lumbago with TRACI OROZCO Active [facility] sciatica, ([employer]) Clinic Main unspecified side / [place] M54.40(ICD-10) Repository 02/15/2015 Active Type 2 diabetes TRACI OROZCO Active [facility] mellitus with ([employer]) Clinic Main diabetic [place] polyneuropathy / Repository E11.42(ICD-10) 01/28/2015 Active Pain in right leg / TRACI OROZCO Active [facility] M79.604(ICD-10) ([employer]) Clinic Main [place] Repository 01/28/2015 Active Pain in left leg / TRACI OROZCO Active [facility] M79.605(ICD-10) ([employer]) Clinic Main [place] Repository 02/26/2014 Active Unspecified fracture TRACI OROZCO Active [facility] of unspecified ([facility]) Clinic Main lumbar vertebra, [place] subsequent encounter Repository for fracture with nonunion / S32.009K(ICD-10) 02/26/2014 Active Postlaminectomy [facility]ACI [facility]OZ[facility] kyphosis / ([employer]) Clinic Main M96.3(ICD-10) [place] Repository PROCEDURES PROCEDURES No Procedure Records FoundRESULTS RESULTS PROGRESS Observed: 01/28/2018 Status: COMPLETED Source: [place] 2:06 PM [facility] REPOSITORY HNO ID: [id number] Author: Traci Grant (Gal[place]) Bishop Service: (none) Author Type: Nurse Practitioner Type: Progress Notes Filed: 01/29/2018 8:40 AM Note Text: SUBJECTIVE: Donavan Jensen presents to [facility] for a followup appointment for low back pain and medication refill. Since the last visit, Donavan Jensen states the pain has been persistent. Current pain intensity is 5 on a scale of 0-10. Pain located in Back area and radiates down the posterior leg and down the anterior leg. Pain described as radiating, sharp and stabbing The patient Reports leg pain. Symptoms interfere with walking and sitting. Pain is exacerbated by sitting and walking. Pain is mitigated by lying down and medications. The medications are effective. The patient states the last dose of Morphine was taken last night. REVIEW OF SYSTEMS: Constitutional: (-) Fever (-) Night Sweats (-) Weight Gain (-) Weight Loss (-) Fatigue Cardiovascular: (-) Chest Pain (-) Palpitations (-) Lightheadedness (+) Swelling of Ankles (-) Hx Heart Surgery Respiratory: (-) Shortness of Breath (-) Cough (-) Wheezing (-) Snoring Gastrointestinal: (-) Incontinence (-) Abdominal Pain (-) Diarrhea (+) Constipation (-) Nausea/Vomiting (-) Heart Burn Endocrine: (-) Thyroid Disorder (+) Diabetes Hematologic: (-) Prolonged Bleeding (+) Easy Bruising Genitourinary: (-) Incontinence (+) Frequency (+) Urinary Urgency Skin: (-) Rashes (-) Itching (+) Other Lesions Neurologic: (-) Headache (-) Double Vision (-) Confusion (-) Paralysis Psychiatric: (-) Depression (-) Anxiety (-) Delusions (-) Hallucinations (-) Personal History of Alcohol or Substance Abuse (-) Family History of Alcohol or Substance Abuse OBJECTIVE: Pulse 73 Ht 5' 4 (1.63m) Wt 137 lb (62.1kg) SpO2 87[different finger 88%]% BMI 23.50 kg/(m2). PHYSICAL EXAMINATION: General appearance: Well appearing, in no acute distress, alert Skin: Skin color, texture, turgor normal, no rashes or lesions Neck: No pain to palpation over the cervical paraspinous muscles. No pain with neck flexion, extension, or lateral flexion Cardiovascular: Regular rate Lungs: Normal respiratory rate and rhythm Abdomen: Abdomen soft and non-tender. Back: limited range of motion with pain reproduction. Facet:positive facet loading Spine: Reports Tenderness on palpation: Lumbar/Pelvic paravertebrals Extremities: No deformities, edema, or skin discoloration. Good capillary refill. Musculoskeletal: Joint pain denies Neuro: No loss of sensation is noted. Station and Gait: severe gait disturbance (can walk only with assistance) walker Motor: Exhibits full strength in all four extremities. Trigger points: none. ASSESSMENT: Assessment : Patient reports lower back pain that radiates into the anterior and posterior bilateral lower extremities to the level of the knee She ambulates with a walker She takes morphine ER 15 mg twice a day and Lyrica to help manage her chronic pain Encounter Diagnosis ICD-10-CM 1. Chronic low back pain with sciatica, sciatica laterality unspecified, unspecified back pain laterality M54.40 morphine SR (MS CONTIN, ORAMORPH SR) 15 mg 12 hr tablet G89.29 morphine SR (MS CONTIN, ORAMORPH SR) 15 mg 12 hr tablet morphine SR (MS CONTIN, ORAMORPH SR) 15 mg 12 hr tablet 2. Pseudoarthrosis of lumbar spine S32.009K morphine SR (MS CONTIN, ORAMORPH SR) 15 mg 12 hr tablet morphine SR (MS CONTIN, ORAMORPH SR) 15 mg 12 hr tablet morphine SR (MS CONTIN, ORAMORPH SR) 15 mg 12 hr tablet 3. Post-laminectomy kyphosis M96.3 morphine SR (MS CONTIN, ORAMORPH SR) 15 mg 12 hr tablet morphine SR (MS CONTIN, ORAMORPH SR) 15 mg 12 hr tablet morphine SR (MS CONTIN, ORAMORPH SR) 15 mg 12 hr tablet 4. Chronic bilateral thoracic back pain M54.6 morphine SR (MS CONTIN, ORAMORPH SR) 15 mg 12 hr tablet G89.29 morphine SR (MS CONTIN, ORAMORPH SR) 15 mg 12 hr tablet morphine SR (MS CONTIN, ORAMORPH SR) 15 mg 12 hr tablet 5. Bilateral leg pain M79.604 morphine SR (MS CONTIN, ORAMORPH SR) 15 mg 12 hr tablet M79.605 morphine SR (MS CONTIN, ORAMORPH SR) 15 mg 12 hr tablet morphine SR (MS CONTIN, ORAMORPH SR) 15 mg 12 hr tablet 6. Type 2 diabetes mellitus with peripheral neuropathy (HCC) E11.42 morphine SR (MS CONTIN, ORAMORPH SR) 15 mg 12 hr tablet PDMP website checked and validated. All prescriptions have been APPROPRIATELY filled. No suspicious activity was identified. 01/28/2018 by Coral Bear Ma Narcotic Agreement reviewed and signed?: N/A on January 28, 2018 Urine Panel: Lab Results Component Value Date Cannabinoid Quant, Urine <16 01/15/2017 Benzoylecognine Quant, Urine <24 01/15/2017 6-Acetylmorphine Quant, Urine <5 01/15/2017 Amphetamine Quant, Urine <5 01/15/2017 Methamphetamine Quant, Urine <8 01/15/2017 Buprenorphine Quant, Urine <20 01/15/2017 Norbuprenorphine Quant, Urine <20 01/15/2017 Methadone Quant, Urine <16 01/15/2017 EDDP Quant, Urine <6 01/15/2017 Tramadol Quant, Urine <25 01/15/2017 Desmethyltramadol Quant, Urine <20 01/15/2017 Fentanyl Quant, Urine <6 01/15/2017 Norfentanyl Quant, Urine <6 01/15/2017 Codeine Quant, Urine <11 01/15/2017 Morphine Quant, Urine 4,314 (H) 01/15/2017 Dihydrocodeine Quant, Urine <5 01/15/2017 Hydrocodone Quant, Urine <8 01/15/2017 Oxycodone Quant, Urine <5 01/15/2017 Hydromorphone Quant, Urine 41 (H) 01/15/2017 Oxymorphone Quant, Urine <5 01/15/2017 Creatinine,Ur Pain [place] 20-50 01/15/2017 Urine pH, Pain [place] 4-10 01/15/2017 Specific [place],Ur Pain Billings 1.005-1.020 01/15/2017 Oxidants,Ur Negative 01/15/2017 Specimen Quality, Ur Pain Billings Specimen quality results within acceptable limits. 01/15/2017 The pain panel was Reviewed - No inconsistencies noted. PLAN: Injection history was reviewed. Medication use and compliance were reviewed. 1. Continue medication management through the [facility] 2. Patient is seen every 3 months due to transportation issues. She remains stable on her medications and reports no side effects Signed Prescriptions Disp Refills morphine SR (MS CONTIN, ORAMORPH SR) 15 mg 12 hr tablet 60 tablet 0 Sig: Take 1 tablet by mouth twice daily for 30 days.Earliest Fill Date: 04/07/18 NIK Class: C-II COLLETTE: No morphine SR (MS CONTIN, ORAMORPH SR) 15 mg 12 hr tablet 60 tablet 0 Sig: Take 1 tablet by mouth twice daily for 30 days.Earliest Fill Date: 03/08/18 NIK Class: C-II COLLETTE: No morphine SR (MS CONTIN, ORAMORPH SR) 15 mg 12 hr tablet 60 tablet 0 Sig: Take 1 tablet by mouth twice daily for 30 days.Earliest Fill Date: 02/06/18 NIK Class: C-II COLLETTE: No 3. Interventional procedure options discussed. none 4. Encouraged regular home exercise program. 5) F/U in 3 months This note was partially generated using [employer] voice recognition system. The above plan and management options were discussed at length with patient. Patient is in agreement with the above and verbalized understanding. Traci Orozco APRN, [employer] January 28, 2018 CNOV Observed: 01/28/2018 Status: COMPLETED Source: [place] 2:00 PM [facility] REPOSITORY Office Visit (PNMDNA) DONAVAN JENSEN ([id number]) 1950 F Date Time Provider Department 01/28/18 2:00 PM TRACI OROZCO (GALINDO) PNMDNA During your visit today, we recorded the following information about you: Pulse Weight Height 73/minute 62.1 kg 1.626 m Traci Orozco APRN.CNP 01/29/2018 8:40 AM Signed SUBJECTIVE: Donavan Jensen presents to [facility] Department for a followup appointment for low back pain and medication refill. Since the last visit, Donavan Jensen states the pain has been persistent. Current pain intensity is 5 on a scale of 0-10. Pain located in Back area and radiates down the posterior leg and down the anterior leg. Pain described as radiating, sharp and stabbing The patient Reports leg pain. Symptoms interfere with walking and sitting. Pain is exacerbated by sitting and walking. Pain is mitigated by lying down and medications. The medications are effective. The patient states the last dose of Morphine was taken last night. REVIEW OF SYSTEMS: Constitutional: (-) Fever (-) Night Sweats (-) Weight Gain (-) Weight Loss (-) Fatigue Cardiovascular: (-) Chest Pain (-) Palpitations (-) Lightheadedness (+) Swelling of Ankles (-) Hx Heart Surgery Respiratory: (-) Shortness of Breath (-) Cough (-) Wheezing (-) Snoring Gastrointestinal: (-) Incontinence (-) Abdominal Pain (-) Diarrhea (+) Constipation (-) Nausea/Vomiting (-) Heart Burn Endocrine: (-) Thyroid Disorder (+) Diabetes Hematologic: (-) Prolonged Bleeding (+) Easy Bruising Genitourinary: (-) Incontinence (+) Frequency (+) Urinary Urgency Skin: (-) Rashes (-) Itching (+) Other Lesions Neurologic: (-) Headache (-) Double Vision (-) Confusion (-) Paralysis Psychiatric: (-) Depression (-) Anxiety (-) Delusions (-) Hallucinations (-) Personal History of Alcohol or Substance Abuse (-) Family History of Alcohol or Substance Abuse OBJECTIVE: Pulse 73 Ht 5' 4 (1.63m) Wt 137 lb (62.1kg) SpO2 87[different finger 88%]% BMI 23.50 kg/(m2). PHYSICAL EXAMINATION: General appearance: Well appearing, in no acute distress, alert Skin: Skin color, texture, turgor normal, no rashes or lesions Neck: No pain to palpation over the cervical paraspinous muscles. No pain with neck flexion, extension, or lateral flexion Cardiovascular: Regular rate Lungs: Normal respiratory rate and rhythm Abdomen: Abdomen soft and non-tender. Back: limited range of motion with pain reproduction. Facet:positive facet loading Spine: Reports Tenderness on palpation: Lumbar/Pelvic paravertebrals Extremities: No deformities, edema, or skin discoloration. Good capillary refill. Musculoskeletal: Joint pain denies Neuro: No loss of sensation is noted. Station and Gait: severe gait disturbance (can walk only with assistance) walker Motor: Exhibits full strength in all four extremities. Trigger points: none. ASSESSMENT: Assessment : Patient reports lower back pain that radiates into the anterior and posterior bilateral lower extremities to the level of the knee She ambulates with a walker She takes morphine ER 15 mg twice a day and Lyrica to help manage her chronic pain Encounter Diagnosis ICD-10-CM 1. Chronic low back pain with sciatica, sciatica laterality unspecified, unspecified back pain laterality M54.40 morphine SR (MS CONTIN, ORAMORPH SR) 15 mg 12 hr tablet G89.29 morphine SR (MS CONTIN, ORAMORPH SR) 15 mg 12 hr tablet morphine SR (MS CONTIN, ORAMORPH SR) 15 mg 12 hr tablet 2. Pseudoarthrosis of lumbar spine S32.009K morphine SR (MS CONTIN, ORAMORPH SR) 15 mg 12 hr tablet morphine SR (MS CONTIN, ORAMORPH SR) 15 mg 12 hr tablet morphine SR (MS CONTIN, ORAMORPH SR) 15 mg 12 hr tablet 3. Post-laminectomy kyphosis M96.3 morphine SR (MS CONTIN, ORAMORPH SR) 15 mg 12 hr tablet morphine SR (MS CONTIN, ORAMORPH SR) 15 mg 12 hr tablet morphine SR (MS CONTIN, ORAMORPH SR) 15 mg 12 hr tablet 4. Chronic bilateral thoracic back pain M54.6 morphine SR (MS CONTIN, ORAMORPH SR) 15 mg 12 hr tablet G89.29 morphine SR (MS CONTIN, ORAMORPH SR) 15 mg 12 hr tablet morphine SR (MS CONTIN, ORAMORPH SR) 15 mg 12 hr tablet 5. Bilateral leg pain M79.604 morphine SR (MS CONTIN, ORAMORPH SR) 15 mg 12 hr tablet M79.605 morphine SR (MS CONTIN, ORAMORPH SR) 15 mg 12 hr tablet morphine SR (MS CONTIN, ORAMORPH SR) 15 mg 12 hr tablet 6. Type 2 diabetes mellitus with peripheral neuropathy (HCC) E11.42 morphine SR (MS CONTIN, ORAMORPH SR) 15 mg 12 hr tablet PDMP website checked and validated. All prescriptions have been APPROPRIATELY filled. No suspicious activity was identified. 01/28/2018 by Coral Bear Ma Narcotic Agreement reviewed and signed?: N/A on January 28, 2018 Urine Panel: Lab Results Component Value Date Cannabinoid Quant, Urine <16 01/15/2017 Benzoylecognine Quant, Urine <24 01/15/2017 6-Acetylmorphine Quant, Urine <5 01/15/2017 Amphetamine Quant, Urine <5 01/15/2017 Methamphetamine Quant, Urine <8 01/15/2017 Buprenorphine Quant, Urine <20 01/15/2017 Norbuprenorphine Quant, Urine <20 01/15/2017 Methadone Quant, Urine <16 01/15/2017 EDDP Quant, Urine <6 01/15/2017 Tramadol Quant, Urine <25 01/15/2017 Desmethyltramadol Quant, Urine <20 01/15/2017 Fentanyl Quant, Urine <6 01/15/2017 Norfentanyl Quant, Urine <6 01/15/2017 Codeine Quant, Urine <11 01/15/2017 Morphine Quant, Urine 4,314 (H) 01/15/2017 Dihydrocodeine Quant, Urine <5 01/15/2017 Hydrocodone Quant, Urine <8 01/15/2017 Oxycodone Quant, Urine <5 01/15/2017 Hydromorphone Quant, Urine 41 (H) 01/15/2017 Oxymorphone Quant, Urine <5 01/15/2017 Creatinine,Ur Pain [place]ings 20-50 01/15/2017 Urine pH, Pain [place] 4-10 01/15/2017 Specific [place],Ur Pain Billings 1.005-1.020 01/15/2017 Oxidants,Ur Negative 01/15/2017 Specimen Quality, Ur Pain [place] Specimen quality results within acceptable limits. 01/15/2017 The pain panel was Reviewed - No inconsistencies noted. PLAN: Injection history was reviewed. Medication use and compliance were reviewed. 1. Continue medication management through the [facility] 2. Patient is seen every 3 months due to transportation issues. She remains stable on her medications and reports no side effects Signed Prescriptions Disp Refills morphine SR (MS CONTIN, ORAMORPH SR) 15 mg 12 hr tablet 60 tablet 0 Sig: Take 1 tablet by mouth twice daily for 30 days.Earliest Fill Date: 04/07/18 NIK Class: C-II COLLETTE: No morphine SR (MS CONTIN, ORAMORPH SR) 15 mg 12 hr tablet 60 tablet 0 Sig: Take 1 tablet by mouth twice daily for 30 days.Earliest Fill Date: 03/08/18 NIK Class: C-II COLLETTE: No morphine SR (MS CONTIN, ORAMORPH SR) 15 mg 12 hr tablet 60 tablet 0 Sig: Take 1 tablet by mouth twice daily for 30 days.Earliest Fill Date: 02/06/18 NIK Class: C-II COLLETTE: No 3. Interventional procedure options discussed. none 4. Encouraged regular home exercise program. 5) F/U in 3 months This note was partially generated using [employer] voice recognition system. The above plan and management options were discussed at length with patient. Patient is in agreement with the above and verbalized understanding. Traci Orozco APRN, GALINDO January 28, 2018 Referring Provider: TRACI OROZCO ([facility]) [[id number]] Allergies As of Date: 01/28/2018 Noted Allergy Reaction PENICILLINS 11/21/2004 4 - Hives POLLEN 2014 16 - Unknown Date Reviewed: 01/28/2018 Reviewed by: Coral Bear Ma - Fully Assessed Reason for Visit: Follow Up [171] Visit Diagnoses:Chronic low back pain with sciatica, sciatica laterality unspecified, unspecified back pain laterality [M54.40, G89.29] Pseudoarthrosis of lumbar spine [S32.009K] Post-laminectomy kyphosis [M96.3] Chronic bilateral thoracic back pain [M54.6, G89.29] Bilateral leg pain [M79.604, M79.605] Type 2 diabetes mellitus with peripheral neuropathy (HCC) [E11.42] Order(s):[START ON 04/07/2018] morphine SR (MS CONTIN, ORAMORPH SR) 15 mg 12 hr tabletTake 1 tablet by mouth twice daily for 30 days. Earliest Fill Date: 04/07/18Disp: 60 tabletRfl: 0 [START ON 03/08/2018] morphine SR (MS CONTIN, ORAMORPH SR) 15 mg 12 hr tabletTake 1 tablet by mouth twice daily for 30 days. Earliest Fill Date: 03/08/18Disp: 60 tabletRfl: 0 [START ON 02/06/2018] morphine SR (MS CONTIN, ORAMORPH SR) 15 mg 12 hr tabletTake 1 tablet by mouth twice daily for 30 days. Earliest Fill Date: 02/06/18Disp: 60 tabletRfl: 0 Prescriptions as of 01/28/2018 Sig: BLOOD SUGAR DIAGNOSTIC STRIPS Test blood sugar(s) 1 times d* CALCITRIOL 0.25 MCG CAPSULE Take 1 capsule by mouth once * CLONIDINE HCL 0.2 MG TABLET take 1 tablet by mouth three * FLUNISOLIDE 25 MCG (0.025 %) * Use 2 Sprays in the nose twic* FUROSEMIDE 20 MG TABLET Take 1 tablet by mouth twice * GLIPIZIDE ER 2.5 MG TABLET, E* take 1 tablet by mouth once d* LABETALOL 300 MG TABLET take 2 tablets by mouth every* LANCETS 28 GAUGE 1 Units as directed. LISINOPRIL 40 MG TABLET take 1 tablet by mouth twice * POLYETHYLENE GLYCOL 3350 17 G* Take 17 g by mouth. Drink a m* PREGABALIN 75 MG CAPSULE Take 1 capsule by mouth twice* PROMETHAZINE 25 MG TABLET 1 tablet every 4-6 hours as n* SIMVASTATIN 20 MG TABLET Take 1 tablet by mouth daily * OCUVITE PRESERVISION ORAL Take by mouth. MORPHINE ER 15 MG TABLET,EXTE* Take 1 tablet by mouth twice * MORPHINE ER 15 MG TABLET,EXTE* Take 1 tablet by mouth twice * MORPHINE ER 15 MG TABLET,EXTE* Take 1 tablet by mouth twice * STIOLTO RESPIMAT 2.5 MCG-2.5 * Problem List As Of Date 01/28/2018 Noted Resolved Essential hypertension [I10] INVALID FOR* Mixed hyperlipidemia [E78.2] INVALID FOR* Type 2 diabetes mellitus with peripheral neurop*INVALID FOR* PULMON CIRCULAT DIS NEC [I28.8] INVALID FOR* More... Chronic obstructive pulmonary disease with acut*INVALID FOR* More... Depressive disorder, not elsewhere classified [*INVALID FOR*02/15/2015 Lumbago [M54.5] INVALID FOR*02/15/2015 More... Unspecified urinary incontinence [R32] INVALID FOR* Tobacco use disorder [F17.200] INVALID FOR* Osteoporosis [M81.0] INVALID FOR* CERVICAL DISC DEGEN [M50.30] INVALID FOR*02/15/2015 Anemia, unspecified [D64.9] INVALID FOR*10/14/2010 EDEMA [R60.9] INVALID FOR* ESOPHAGEAL REFLUX [K21.9] INVALID FOR* RENAL - SEE ALSO KIDNEY ARTERY STENOSIS [I70.*INVALID FOR*02/15/2015 Esophagitis, unspecified [K20.9] INVALID FOR*10/14/2010 Acute gastritis without mention of hemorrhage [*INVALID FOR*10/14/2010 Neuropathy, lumbosacral (radicular) [M54.17] INVALID FOR*02/26/2014 Cyst of kidney, acquired [N28.1] INVALID FOR*02/26/2014 More... Chronic hyponatremia [E87.1] INVALID FOR*12/14/2011 Anemia [D64.9] INVALID FOR*12/14/2011 Kyphoscoliosis [M41.9] INVALID FOR*08/15/2012 Gait abnormality [R26.9] INVALID FOR* Vertebral fracture [[id number]] INVALID FOR*02/26/2014 DM neuro manif type II [E11.49] INVALID FOR*02/15/2015 Other acquired deformity of toe [M20.5X9] INVALID FOR*12/14/2011 Pain in limb [M79.609] INVALID FOR*12/14/2011 Dermatophytosis of nail [B35.1] INVALID FOR*08/15/2012 CKD (chronic kidney disease) stage 3, GFR 30-59* More... 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 Earliest Fill Date: 04/07/18 MORPHINE ER 15 MG TABLET,EXTENDED RE* 60 t* 0 03/08/2018 04/07/2018 Class: Print RX Route: ORAL Sig: Take 1 tablet by mouth twice daily for 30 days. Earliest Fill Date: 03/08/18 MORPHINE ER 15 MG TABLET,EXTENDED RE* 60 t* 0 02/06/2018 03/08/2018 Class: Print RX Route: ORAL Sig: Take 1 tablet by mouth twice daily for 30 days. Earliest Fill Date: 02/06/18 Medications Discontinued During This Encounter morphine SR (MS CONTIN, ORAMORPH SR)* 60 t* 0 12/07/2017 01/28/2018 Class: Print RX Route: ORAL Sig: Take 1 tablet by mouth twice daily for 30 days. Earliest Fill Date: 12/07/17 Disc: Reason for discontinue is not on file. morphine SR (MS CONTIN, ORAMORPH SR)* 60 t* 0 11/07/2017 01/28/2018 Class: Print RX Route: ORAL Sig: Take 1 tablet by mouth twice daily for 30 days. Earliest Fill Date: 11/07/17 Disc: Reason for discontinue is not on file. morphine SR (MS CONTIN, ORAMORPH SR)* 60 t* 0 01/06/2018 01/28/2018 Class: Print RX Route: ORAL Sig: Take 1 tablet by mouth twice daily for 30 days. Earliest Fill Date: 01/06/18 Disc: Reason for discontinue is not on file. Encounter Status:Closed by TRACI OROZCO on 01/29/18 EMERGENCY DEPARTMENT Observed: 01/09/2018 Status: F Source: [place] SUMMARY 5:30 PM [facility] REPOSITORY [facility] Medical Records Department [address] [place] [address] Emergency Department Summary 01/09/18 1614 MR#: [id number] Acct: [id number] Name: DONAVAN JENSEN Rep #: [id number] : 1950 67 From: Rj Medellin MD PCP: OUT OF [facility] DOCTOR Status: REG ER History of Present Illness Chief Complaint: Cold Sx Informant: Patient Onset: Weeks - 2 Context: Gradual Onset Timing: Continuous Quality: prod cough, congestion Current Severity: Moderate Maximum Severity: Moderate Worsened by: exertion Relieved by: rest Associated Symptoms: subj fevers in beginning now resolved. inc COPD sx/wheezing. no cp. Narrative: Green sputum per nose and coughing up. no leg edema or orthopnea. Has not been seen for this illness yet; PCP on recent maternity leave. Hx of diabetes, states her BS's are well-controlled, except for when she takes prednisone, which she wants to avoid. Prior similar symptoms: Yes - Past Medical History (1) Benign essential HTN Status: Chronic (2) Compression fracture of vertebral column Status: Chronic (3) DM type 2 (diabetes mellitus, type 2) Status: Chronic (4) Diverticulosis of colon without diverticulitis Status: Chronic (5) Hyperlipemia Status: Chronic Past Medical History - Allergies and Home Meds Allergies/Adverse Reactions: Allergies Penicillins Allergy (Verified 01/09/18 15:44) Raymond Primary Care Physician: Georgina Doctor,Out of [Primary Care Provider] - Surgical History: appendectomy, cholecystectomy, - - Prior cardiac catheterization which was negative 2002, back surgeries x4, contracts surgery Smoking Status: Former smoker - Family History Maternal Family History: Reports: No pertinent history Review of Systems General: Reports: Fever, Malaise. Denies: Sweats Eyes: Denies: Visual changes - bilaterally, Diplopia ENT: Reports: Rhinorrhea. Denies: Bilateral ear pain, Sore throat Cardiovascular: Denies: Chest pain, Palpitations Respiratory: Reports: Dyspnea, Cough, Sputum, Dyspnea on exertion Gastrointestinal: Denies: Abdominal pain, Nausea, Vomiting, Diarrhea, Melena, Hematochezia Genitourinary: Denies: Dysuria, Hematuria, Frequency Musculoskeletal: Denies: Neck pain, Back pain, Swelling, Extremity Pain Skin: Denies: Rash, Wounds Neurological: Denies: Headache, Weakness, Numbness Physical Exam Vital Signs/Narrative: Vital Signs 01/09/18 15:43 97.8 F 59 L 18 157/76 H 92 Inital Vital Signs reviewed: Yes General: Well nourished, Well developed Head: Normocephalic, Atraumatic Eyes: Perrl, EOMI ENT: Moist mucous membranes, No rhinorrhea, TM's clear, Nasal congestion. Negative for: Sinus tenderness Neck: Supple, Nontender, No lymphadenopathy, No JVD Cardiovascular: Regular rate, Regular rhythm, - - faint HS Respiratory: No distress, Chest nontender, Wheezing - expiratory throughout all lung lombardi, Diminished - throughout, symmetrically Back: Nontender, Normal Inspection Extremities: Nontender, No edema Skin: Normal color, No rash Neurological: Alert, Oriented x3, Cranial nerves II-XII grossly intact, Normal Strength, Normal Sensation, Normal Gait Psychological: Normal affect Diagnostic/Tx/Re-eval Clinical Impression(s) from Imaging Studies Chest X-Ray 01/09/18 16:45 IMPRESSION: COPD without acute cardiopulmonary disease or major interval change. Electronically Signed: Steve Gillespie DO at 17:09 EST Tel [phone], Service support , - Medical Decision Making X-ray shows no infiltrates, she feels better after nebulizer treatments and again prefers not to be on prednisone which I think is reasonable given her diabetes. I encouraged her to return if she is getting much worse, will place her on Levaquin for now, and advised that she follow-up closely with her doctor if persistent symptoms. She is comfortable with that plan. ED Disposition - Plan for ED Patient: Disposition: Home or Assisted Living Chief Complaint: Cold Sx Diagnosis: COPD exacerbation, Acute bronchitis Instructions: ED COPD Flare Prescriptions: levoFLOXacin tablet [Levaquin] 500 mg PO DAILY #6 tablet Referrals: [facility] Doctor,Out of [Primary Care Provider] - 1 Week if not improving What to do if you have Problems For any increased pain, shortness of breath, bleeding, nausea or vomiting, chest pain, or any unexpected problems, contact your Primary Care Provider. Call [facility] ([phone]) or report to the closest Emergency Room. Call 911 if necessary. 01/09/18 1730 <Electronically signed by Rj Medellin MD> Date Rj Medellin MD Cosigner Signature (If Indicated): Date CC: OUT OF TOWN DOCTOR CHEST PA AND LATERAL Observed: 01/09/2018 Status: F Source: [place] 4:14 PM [facility] REPOSITORY [facility] Imaging Services [address] [place] [address] Chest PA and Lateral MR#: [id number] Acct: [id number] Name: DONAVAN JENSEN Rep #: [id number] : 1950 F 67 From: Steve Gillespie DO PCP: OUT OF TOWN DOCTOR Status: REG ER Study: Chest PA and Lateral Date of Exam: 01/09/18 Exam# [id number] Ordering Dr: Rj Medellin MD STUDY: X-RAY CHEST REASON FOR EXAM: Female, 67 years old. Cough. Shortness of breath. Symptoms for several weeks. TECHNIQUE: PA and lateral views of the chest. COMPARISON: July 28, 2014. FINDINGS: There is hyperinflation of the lungs consistent with chronic obstructive lung disease (COPD). No acute mass or infiltrate. There are calcified granulomata are again seen scattered throughout both lungs. There is no demonstrated pleural abnormality. Normal size heart. Normal mediastinum and dev. Normal visualized pulmonary arteries. Normal visualized aortic arch and descending thoracic aorta. There is stable fusion of the thoracolumbar spine. The hardware appears intact. There is degenerative osteoarthritis of the bilateral shoulders. There is no demonstrated abnormality of the visualized soft tissue structures of the upper abdomen. RAD/Chest PA and Lateral IMPRESSION: COPD without acute cardiopulmonary disease or major interval change. Electronically Signed: Steve Gillespie DO at 17:09 EST Tel [phone], Service support , CC: RJ MEDELLIN MD; OUT OF TOWN DOCTOR Hogshead Head Matcher: Signed HEMOGRAM W/ AUTODIFF Collected: 12/24/2017 Status: F Source: [facility] 2:13 PM SYSTEM REPOSITORY TYPE CODE TESTS RESULT OUT OF REFERENCE UNITS RANGE LAB IWBC 3.6-10.7 10*3/uL WBC Normal 6.0 LAB RBC 3.80-5.20 10*6/uL RBC Normal 4.33 LAB HGB 11.7-16.0 g/dL Hemoglobin Normal 13.6 LAB HCT 35.0-47.0 % Hematocrit Normal 40.6 LAB MCV 79.0-98.0 fL MCV Normal 93.7 LAB MCH 26.0-34.0 pg MCH Normal 31.5 LAB MCHC 32.0-36.0 % MCHC Normal 33.6 LAB RDW 11.5-14.5 % RDW Normal 13.9 LAB PLT 140-440 10*3/uL Platelet Normal 141 LAB MPV 7.4-10.4 fL MPV Normal 8.1 LAB GRAN% 40.0-80.0 % Granulocytes Normal 65.2 LAB LYMP% 20.0-40.0 % Lymphocytes Normal 21.0 LAB MONO% 2.0-10.0 % Monocytes Normal 9.2 LAB EOS% 1.0-6.0 % Eosinophils Normal 3.7 LAB BAS% 0.0-2.0 % Basophils Normal 0.9 LAB ANC 1.8-7.0 10*3/uL Abs Normal Neutrophile Cnt 3.9 LAB ALC 1.0-4.3 10*3/uL Abs Lymph Cnt Normal 1.3 LAB AMC 0.0-0.8 10*3/uL Abs Monocyte Normal Cnt 0.6 LAB AEC 0.0-0.5 10*3/uL Abs Eosin Cnt Normal 0.2 LAB ABC 0.0-0.2 10*3/uL Abs Baso Cnt Normal 0.1 Performed By: #### HEMDF, RENL3 #### [facility] [address] [place] [address] #### PTH3, VD25H #### [facility] [address] [place] [address] RENAL FUNCTION Collected: 12/24/2017 Status: F Source: [facility] 2:13 PM SYSTEM REPOSITORY TYPE CODE TESTS RESULT OUT OF RANGE REFERENCE UNITS LAB NA3 137-145 mmol/L Low Sodium 135 LAB K3 3.5-5.1 mmol/L Normal Potassium 4.0 LAB CL3 98-107 mmol/L Low Chloride 92 LAB CO23 22-30 mmol/L High Carbon Dioxide 37 LAB ANIN3 NA Anion Gap 6 LAB GLUC3 70-100 mg/dL Glucose Normal 83 LAB BUN3 7-20 mg/dL Urea Normal Nitrogen 18 LAB CRET3 0.52-1.25 mg/dL Normal Creatinine 1.07 LAB GF3BR >60 mL/min eGFR > 60.0 LAB GF3WR >60 mL/min eGFR OTHER 50.8 Result Comment: Source- MDRD equation with creatinine calibration to IDMS(NKDEP) eGFR not recommended for drug dose adjustment LAB CA3 8.4-10.4 mg/dL Normal Calcium 9.4 LAB ALB3 3.5-5.0 g/dL Normal Albumin, Serum 3.7 LAB PHOS3 2.5-4.5 mg/dL Normal Phosphorus 3.9 Performed By: #### HEMDF, RENL3 #### [facility] [address] [place] [address] #### PTH3, VD25H #### [facility] [address] [place] [address] PTH, INTACT Collected: 12/24/2017 Status: F Source: [facility] 2:13 PM SYSTEM REPOSITORY TYPE CODE TESTS RESULT OUT OF RANGE REFERENCE UNITS LAB PTH3 15.0-63.0 pg/mL Normal PTH, Intact 58.8 Performed By: #### HEMDF, RENL3 #### [facility] [address] [place] [address] #### PTH3, VD25H #### [facility] [address] [place] [address] VIT D 25-OH, TOTAL Collected: 12/24/2017 Status: F Source: [facility] 2:13 PM SYSTEM REPOSITORY TYPE CODE TESTS RESULT OUT OF RANGE REFERENCE UNITS LAB VD25H 30-100 ng/mL Low Vit D 23 25-OH, Total Result Comment: Therapy is based on measurement of Total 25-OHD with the following classification levels: Less than 20 ng/mL: Indicative of Vit D deficiency 20-30 ng/mL: Suggests Vit D insufficiency Optimal: Greater than or equal to 30 ng/mL Test performed by [employer] Comp[employer] Immunoassay, measuring Total Vitamin D, not individual fractions. Performed By: #### HEMDF, RENL3 #### [facility] [address] [place] [address] #### PTH3, VD25H #### [facility] [address] [place] [address] PROGRESS Observed: 11/05/2017 Status: COMPLETED Source: [place] 2:15 PM [facility] REPOSITORY HNO ID: [id number] Author: Traci Orozco Service: (none) Author Type: Nurse Practitioner Type: Progress Notes Filed: 11/05/2017 2:30 PM Note Text: SUBJECTIVE: Donavan Jensen presents to [facility] Department for a followup appointment for low back and bilateral thigh pain. Since the last visit, Donavan Jensen states the pain has been staying the same. Current pain intensity is 7 on a scale of 0-10. Pain located in Back and both thighs area and radiates down the posterior leg. Pain described as aching The patient Reports morning stiffness, leg pain and leg weakness. Symptoms interfere with physical activity. Pain is exacerbated by standing, forward flexion, lifting, getting up from sitting and walking. Pain is mitigated by lying down and medications. REVIEW OF SYSTEMS: Constitutional: (-) Fever (-) Night Sweats (-) Weight Gain (-) Weight Loss (-) Fatigue Cardiovascular: (-) Chest Pain (-) Palpitations (-) Lightheadedness (-) Swelling of Ankles (-) Hx Heart Surgery Respiratory: (-) Shortness of Breath (-) Cough (-) Wheezing (-) Snoring Gastrointestinal: (-) Incontinence (-) Abdominal Pain (-) Diarrhea (-) Constipation (-) Nausea/Vomiting (-) Heart Burn Endocrine: (-) Thyroid Disorder (+) Diabetes Hematologic: (-) Prolonged Bleeding (-) Easy Bruising Genitourinary: (-) Incontinence (-) Frequency (-) Urinary Urgency Skin: (-) Rashes (-) Itching (-) Other Lesions Neurologic: (-) Headache (-) Double Vision (-) Confusion (-) Paralysis Psychiatric: (-) Depression (-) Anxiety (-) Delusions (-) Hallucinations (-) Personal History of Alcohol or Substance Abuse (-) Family History of Alcohol or Substance Abuse OBJECTIVE: Pulse 71 Wt 139 lb (63.1kg) SpO2 90% PHYSICAL EXAMINATION: General appearance: Well appearing, in no acute distress, alert Skin: Skin color, texture, turgor normal, no rashes or lesions Neck: No pain to palpation over the cervical paraspinous muscles. No pain with neck flexion, extension, or lateral flexion Cardiovascular: Regular rate Lungs: Normal respiratory rate and rhythm Abdomen: Abdomen soft and non-tender. Back: Intact range of motion with pain reproduction. Spine: Reports Tenderness on palpation: Lumbar/Pelvic, bilateral paravertebrals Extremities: No deformities, edema, or skin discoloration. Good capillary refill. Musculoskeletal: Bilateral upper and lower extremity strength is normal and symmetric. No atrophy or tone abnormalities are noted. Neuro: No loss of sensation is noted. Station and Gait: severe gait disturbance (can walk only with assistance) walker Motor: Exhibits full strength in all four extremities. Trigger points: none. ASSESSMENT: Assessment : Patient reports chronic lower back pain that radiates into the anterior and posterior thighs to the level of the knees She uses a walker to ambulate She takes morphine ER 15 mg twice a day and Lyrica 75 mg twice a day for her chronic pain Encounter Diagnosis ICD-10-CM 1. Chronic low back pain with sciatica, sciatica laterality unspecified, unspecified back pain laterality M54.40 morphine SR (MS CONTIN, ORAMORPH SR) 15 mg 12 hr tablet G89.29 morphine SR (MS CONTIN, ORAMORPH SR) 15 mg 12 hr tablet pregabalin (LYRICA) 75 mg capsule 2. Pseudoarthrosis of lumbar spine S32.009K morphine SR (MS CONTIN, ORAMORPH SR) 15 mg 12 hr tablet morphine SR (MS CONTIN, ORAMORPH SR) 15 mg 12 hr tablet pregabalin (LYRICA) 75 mg capsule 3. Post-laminectomy kyphosis M96.3 morphine SR (MS CONTIN, ORAMORPH SR) 15 mg 12 hr tablet morphine SR (MS CONTIN, ORAMORPH SR) 15 mg 12 hr tablet 4. Chronic bilateral thoracic back pain M54.6 morphine SR (MS CONTIN, ORAMORPH SR) 15 mg 12 hr tablet G89.29 morphine SR (MS CONTIN, ORAMORPH SR) 15 mg 12 hr tablet 5. Bilateral leg pain M79.604 morphine SR (MS CONTIN, ORAMORPH SR) 15 mg 12 hr tablet M79.605 morphine SR (MS CONTIN, ORAMORPH SR) 15 mg 12 hr tablet 6. Type 2 diabetes mellitus with peripheral neuropathy (HCC) E11.42 morphine SR (MS CONTIN, ORAMORPH SR) 15 mg 12 hr tablet pregabalin (LYRICA) 75 mg capsule PDMP website checked and validated. All prescriptions have been APPROPRIATELY filled. No suspicious activity was identified. 11/05/2017 by Pati Barrera MA Narcotic Agreement reviewed and signed?: N/A on November 05, 2017 Urine Panel: Lab Results Component Value Date Cannabinoid Quant, Urine <16 01/15/2017 Benzoylecognine Quant, Urine <24 01/15/2017 6-Acetylmorphine Quant, Urine <5 01/15/2017 Amphetamine Quant, Urine <5 01/15/2017 Methamphetamine Quant, Urine <8 01/15/2017 Buprenorphine Quant, Urine <20 01/15/2017 Norbuprenorphine Quant, Urine <20 01/15/2017 Methadone Quant, Urine <16 01/15/2017 EDDP Quant, Urine <6 01/15/2017 Tramadol Quant, Urine <25 01/15/2017 Desmethyltramadol Quant, Urine <20 01/15/2017 Fentanyl Quant, Urine <6 01/15/2017 Norfentanyl Quant, Urine <6 01/15/2017 Codeine Quant, Urine <11 01/15/2017 Morphine Quant, Urine 4,314 (H) 01/15/2017 Dihydrocodeine Quant, Urine <5 01/15/2017 Hydrocodone Quant, Urine <8 01/15/2017 Oxycodone Quant, Urine <5 01/15/2017 Hydromorphone Quant, Urine 41 (H) 01/15/2017 Oxymorphone Quant, Urine <5 01/15/2017 Creatinine,Ur Pain Billings 20-50 01/15/2017 Urine pH, Pain Billings 4-10 01/15/2017 Specific [place],Ur Pain Billings 1.005-1.020 01/15/2017 Oxidants,Ur Negative 01/15/2017 Specimen Quality, Ur Pain Billings Specimen quality results within acceptable limits. 01/15/2017 The pain panel was Reviewed - No inconsistencies noted. PLAN: 1) Refill morphine ER 15 mg twice a day. Fill dates are 11/07, 12/07, and 01/06 2) refill Lyrica 75 mg twice a day. Fill date 11/17 3) encouraged daily walking and stretching 4) RTC 3 months This note was partially generated using [employer] voice recognition system. The above plan and management options were discussed at length with patient. Patient is in agreement with the above and verbalized understanding. Traci Orozco APRN, CNP November 05, 2017 CNOV Observed: 11/05/2017 Status: COMPLETED Source: [place] 2:00 PM [facility] REPOSITORY Office Visit (PNMDNA) CHRISKYDONAVAN ([id number]) 1950 F Date Time Provider Department 11/05/17 2:00 PM TRACI OROZCO (GALINDO) PNMDNA During your visit today, we recorded the following information about you: Pulse Weight 71/minute 63 kg Traci Orozco APRN.GALINDO 11/05/2017 2:30 PM Signed SUBJECTIVE: Donavan Jensen presents to [facility] Department for a followup appointment for low back and bilateral thigh pain. Since the last visit, Donavan Jensen states the pain has been staying the same. Current pain intensity is 7 on a scale of 0-10. Pain located in Back and both thighs area and radiates down the posterior leg. Pain described as aching The patient Reports morning stiffness, leg pain and leg weakness. Symptoms interfere with physical activity. Pain is exacerbated by standing, forward flexion, lifting, getting up from sitting and walking. Pain is mitigated by lying down and medications. REVIEW OF SYSTEMS: Constitutional: (-) Fever (-) Night Sweats (-) Weight Gain (-) Weight Loss (-) Fatigue Cardiovascular: (-) Chest Pain (-) Palpitations (-) Lightheadedness (-) Swelling of Ankles (-) Hx Heart Surgery Respiratory: (-) Shortness of Breath (-) Cough (-) Wheezing (-) Snoring Gastrointestinal: (-) Incontinence (-) Abdominal Pain (-) Diarrhea (-) Constipation (-) Nausea/Vomiting (-) Heart Burn Endocrine: (-) Thyroid Disorder (+) Diabetes Hematologic: (-) Prolonged Bleeding (-) Easy Bruising Genitourinary: (-) Incontinence (-) Frequency (-) Urinary Urgency Skin: (-) Rashes (-) Itching (-) Other Lesions Neurologic: (-) Headache (-) Double Vision (-) Confusion (-) Paralysis Psychiatric: (-) Depression (-) Anxiety (-) Delusions (-) Hallucinations (-) Personal History of Alcohol or Substance Abuse (-) Family History of Alcohol or Substance Abuse OBJECTIVE: Pulse 71 Wt 139 lb (63.1kg) SpO2 90% PHYSICAL EXAMINATION: General appearance: Well appearing, in no acute distress, alert Skin: Skin color, texture, turgor normal, no rashes or lesions Neck: No pain to palpation over the cervical paraspinous muscles. No pain with neck flexion, extension, or lateral flexion Cardiovascular: Regular rate Lungs: Normal respiratory rate and rhythm Abdomen: Abdomen soft and non-tender. Back: Intact range of motion with pain reproduction. Spine: Reports Tenderness on palpation: Lumbar/Pelvic, bilateral paravertebrals Extremities: No deformities, edema, or skin discoloration. Good capillary refill. Musculoskeletal: Bilateral upper and lower extremity strength is normal and symmetric. No atrophy or tone abnormalities are noted. Neuro: No loss of sensation is noted. Station and Gait: severe gait disturbance (can walk only with assistance) walker Motor: Exhibits full strength in all four extremities. Trigger points: none. ASSESSMENT: Assessment : Patient reports chronic lower back pain that radiates into the anterior and posterior thighs to the level of the knees She uses a walker to ambulate She takes morphine ER 15 mg twice a day and Lyrica 75 mg twice a day for her chronic pain Encounter Diagnosis ICD-10-CM 1. Chronic low back pain with sciatica, sciatica laterality unspecified, unspecified back pain laterality M54.40 morphine SR (MS CONTIN, ORAMORPH SR) 15 mg 12 hr tablet G89.29 morphine SR (MS CONTIN, ORAMORPH SR) 15 mg 12 hr tablet pregabalin (LYRICA) 75 mg capsule 2. Pseudoarthrosis of lumbar spine S32.009K morphine SR (MS CONTIN, ORAMORPH SR) 15 mg 12 hr tablet morphine SR (MS CONTIN, ORAMORPH SR) 15 mg 12 hr tablet pregabalin (LYRICA) 75 mg capsule 3. Post-laminectomy kyphosis M96.3 morphine SR (MS CONTIN, ORAMORPH SR) 15 mg 12 hr tablet morphine SR (MS CONTIN, ORAMORPH SR) 15 mg 12 hr tablet 4. Chronic bilateral thoracic back pain M54.6 morphine SR (MS CONTIN, ORAMORPH SR) 15 mg 12 hr tablet G89.29 morphine SR (MS CONTIN, ORAMORPH SR) 15 mg 12 hr tablet 5. Bilateral leg pain M79.604 morphine SR (MS CONTIN, ORAMORPH SR) 15 mg 12 hr tablet M79.605 morphine SR (MS CONTIN, ORAMORPH SR) 15 mg 12 hr tablet 6. Type 2 diabetes mellitus with peripheral neuropathy (HCC) E11.42 morphine SR (MS CONTIN, ORAMORPH SR) 15 mg 12 hr tablet pregabalin (LYRICA) 75 mg capsule PDMP website checked and validated. All prescriptions have been APPROPRIATELY filled. No suspicious activity was identified. 11/05/2017 by Pati Barrera MA Narcotic Agreement reviewed and signed?: N/A on November 05, 2017 Urine Panel: Lab Results Component Value Date Cannabinoid Quant, Urine <16 01/15/2017 Benzoylecognine Quant, Urine <24 01/15/2017 6-Acetylmorphine Quant, Urine <5 01/15/2017 Amphetamine Quant, Urine <5 01/15/2017 Methamphetamine Quant, Urine <8 01/15/2017 Buprenorphine Quant, Urine <20 01/15/2017 Norbuprenorphine Quant, Urine <20 01/15/2017 Methadone Quant, Urine <16 01/15/2017 EDDP Quant, Urine <6 01/15/2017 Tramadol Quant, Urine <25 01/15/2017 Desmethyltramadol Quant, Urine <20 01/15/2017 Fentanyl Quant, Urine <6 01/15/2017 Norfentanyl Quant, Urine <6 01/15/2017 Codeine Quant, Urine <11 01/15/2017 Morphine Quant, Urine 4,314 (H) 01/15/2017 Dihydrocodeine Quant, Urine <5 01/15/2017 Hydrocodone Quant, Urine <8 01/15/2017 Oxycodone Quant, Urine <5 01/15/2017 Hydromorphone Quant, Urine 41 (H) 01/15/2017 Oxymorphone Quant, Urine <5 01/15/2017 Creatinine,Ur Pain Billings 20-50 01/15/2017 Urine pH, Pain Billings 4-10 01/15/2017 Specific [place],Ur Pain Billings 1.005-1.020 01/15/2017 Oxidants,Ur Negative 01/15/2017 Specimen Quality, Ur Pain Billings Specimen quality results within acceptable limits. 01/15/2017 The pain panel was Reviewed - No inconsistencies noted. PLAN: 1) Refill morphine ER 15 mg twice a day. Fill dates are 11/07, 12/07, and 01/06 2) refill Lyrica 75 mg twice a day. Fill date 11/17 3) encouraged daily walking and stretching 4) RTC 3 months This note was partially generated using [employer] voice recognition system. The above plan and management options were discussed at length with patient. Patient is in agreement with the above and verbalized understanding. Traci Orozco APRN, GALINDO November 05, 2017 Referring Provider: TRACI OROZCO ([facility]) [[id number]] Allergies As of Date: 11/05/2017 Noted Allergy Reaction PENICILLINS 11/21/2004 4 - Hives POLLEN 2014 16 - Unknown Date Reviewed: 11/05/2017 Reviewed by: Pati Barrera MA - Fully Assessed Reason for Visit: Established Patient [175] Low Back Pain [126] Bilateral thigh pain [Other] Primary Visit Diagnosis:Chronic low back pain with sciatica, sciatica laterality unspecified, unspecified back pain laterality [M54.40, G89.29] Other Visit Diagnoses:Pseudoarthrosis of lumbar spine [S32.009K] Post-laminectomy kyphosis [M96.3] Chronic bilateral thoracic back pain [M54.6, G89.29] Bilateral leg pain [M79.604, M79.605] Type 2 diabetes mellitus with peripheral neuropathy (HCC) [E11.42] Order(s):[START ON 12/07/2017] morphine SR (MS CONTIN, ORAMORPH SR) 15 mg 12 hr tabletTake 1 tablet by mouth twice daily for 30 days. Earliest Fill Date: 12/07/17Disp: 60 tabletRfl: 0 [START ON 11/07/2017] morphine SR (MS CONTIN, ORAMORPH SR) 15 mg 12 hr tabletTake 1 tablet by mouth twice daily for 30 days. Earliest Fill Date: 11/07/17Disp: 60 tabletRfl: 0 [START ON 11/17/2017] pregabalin (LYRICA) 75 mg capsuleTake 1 capsule by mouth twice daily for 30 days.Disp: 60 capsuleRfl: 2 [START ON 01/06/2018] morphine SR (MS CONTIN, ORAMORPH SR) 15 mg 12 hr tabletTake 1 tablet by mouth twice daily for 30 days. Earliest Fill Date: 01/06/18Disp: 60 tabletRfl: 0 Prescriptions as of 11/05/2017 Sig: GLIPIZIDE ER 2.5 MG TABLET, E* take 1 tablet by mouth once d* LABETALOL 300 MG TABLET take 2 tablets by mouth every* LISINOPRIL 40 MG TABLET take 1 tablet by mouth twice * CLONIDINE HCL 0.2 MG TABLET take 1 tablet by mouth three * FUROSEMIDE 20 MG TABLET Take 1 tablet by mouth twice * SIMVASTATIN 20 MG TABLET Take 1 tablet by mouth daily * OCUVITE PRESERVISION ORAL Take by mouth. CALCITRIOL 0.25 MCG CAPSULE Take 1 capsule by mouth once * BLOOD SUGAR DIAGNOSTIC STRIPS Test blood sugar(s) 1 times d* STIOLTO RESPIMAT 2.5 MCG-2.5 * POLYETHYLENE GLYCOL 3350 17 G* Take 17 g by mouth. Drink a m* LANCETS 28 GAUGE 1 Units as directed. MORPHINE ER 15 MG TABLET,EXTE* Take 1 tablet by mouth twice * MORPHINE ER 15 MG TABLET,EXTE* Take 1 tablet by mouth twice * PREGABALIN 75 MG CAPSULE Take 1 capsule by mouth twice* MORPHINE ER 15 MG TABLET,EXTE* Take 1 tablet by mouth twice * FLUNISOLIDE 25 MCG (0.025 %) * Use 2 Sprays in the nose twic* PROMETHAZINE 25 MG TABLET 1 tablet every 4-6 hours as n* Problem List As Of Date 11/05/2017 Noted Resolved Essential hypertension [I10] INVALID FOR* Mixed hyperlipidemia [E78.2] INVALID FOR* Type 2 diabetes mellitus with peripheral neurop*INVALID FOR* PULMON CIRCULAT DIS NEC [I28.8] INVALID FOR* More... Chronic obstructive pulmonary disease with acut*INVALID FOR* More... Depressive disorder, not elsewhere classified [*INVALID FOR*02/15/2015 Lumbago [M54.5] INVALID FOR*02/15/2015 More... Unspecified urinary incontinence [R32] INVALID FOR* Tobacco use disorder [F17.200] INVALID FOR* Osteoporosis [M81.0] INVALID FOR* CERVICAL DISC DEGEN [M50.30] INVALID FOR*02/15/2015 Anemia, unspecified [D64.9] INVALID FOR*10/14/2010 EDEMA [R60.9] INVALID FOR* ESOPHAGEAL REFLUX [K21.9] INVALID FOR* RENAL - SEE ALSO KIDNEY ARTERY STENOSIS [I70.*INVALID FOR*02/15/2015 Esophagitis, unspecified [K20.9] INVALID FOR*10/14/2010 Acute gastritis without mention of hemorrhage [*INVALID FOR*10/14/2010 Neuropathy, lumbosacral (radicular) [M54.17] INVALID FOR*02/26/2014 Cyst of kidney, acquired [N28.1] INVALID FOR*02/26/2014 More... Chronic hyponatremia [E87.1] INVALID FOR*12/14/2011 Anemia [D64.9] INVALID FOR*12/14/2011 Kyphoscoliosis [M41.9] INVALID FOR*08/15/2012 Gait abnormality [R26.9] INVALID FOR* Vertebral fracture [XFH3250] INVALID FOR*02/26/2014 DM neuro manif type II [E11.49] INVALID FOR*02/15/2015 Other acquired deformity of toe [M20.5X9] INVALID FOR*12/14/2011 Pain in limb [M79.609] INVALID FOR*12/14/2011 Dermatophytosis of nail [B35.1] INVALID FOR*08/15/2012 CKD (chronic kidney disease) stage 3, GFR 30-59* More... 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 Earliest Fill Date: 12/07/17 MORPHINE ER 15 MG TABLET,EXTENDED RE* 60 t* 0 11/07/2017 12/07/2017 Class: Print RX Route: ORAL Sig: Take 1 tablet by mouth twice daily for 30 days. Earliest Fill Date: 11/07/17 PREGABALIN 75 MG CAPSULE 60 c* 2 11/17/2017 12/17/2017 Class: Print RX Route: ORAL Sig: Take 1 capsule by mouth twice daily for 30 days. MORPHINE ER 15 MG TABLET,EXTENDED RE* 60 t* 0 01/06/2018 02/05/2018 Class: Print RX Route: ORAL Sig: Take 1 tablet by mouth twice daily for 30 days. Earliest Fill Date: 01/06/18 Medications Discontinued During This Encounter morphine SR (MS CONTIN, ORAMORPH SR)* 60 t* 0 10/08/2017 11/05/2017 Class: Print RX Route: ORAL Sig: Take 1 tablet by mouth twice daily for 30 days. Earliest Fill Date: 10/08/17 Disc: Reason for discontinue is not on file. morphine SR (MS CONTIN, ORAMORPH SR)* 60 t* 0 09/08/2017 11/05/2017 Class: Print RX Route: ORAL Sig: Take 1 tablet by mouth twice daily for 30 days. Earliest Fill Date: 09/08/17 Disc: Reason for discontinue is not on file. pregabalin (LYRICA) 75 mg capsule 60 c* 2 08/22/2017 11/05/2017 Class: Print RX Route: ORAL Sig: Take 1 capsule by mouth twice daily for 30 days. Disc: Reason for discontinue is not on file. morphine SR (MS CONTIN, ORAMORPH SR)* 60 t* 0 08/09/2017 11/05/2017 Class: Print RX Route: ORAL Sig: Take 1 tablet by mouth twice daily for 30 days. Earliest Fill Date: 08/09/17 Disc: Reason for discontinue is not on file. Encounter Status:Closed by TRACI OROZCO on 11/05/17 OT BONE DENSITY DEXA Observed: 10/31/2017 Status: F Source: [employer] AXIAL SKELETON 4:03 PM SYSTEM REPOSITORY Patient Name: DONAVAN JENSEN Bone Density Exam Date/Time 10/31/2017 14:01:37 EDT Exam OT Bone Density DEXA Axial Skeleton Ordering Physician MD HEBERT DIANA Accession Number [id number] CPT4 Codes 86675 () Reason For Exam postmenopausal Report DXA BONE DENSITOMETRY: CLINICAL INDICATION: Asymptomatic post-menopausal status. Screening for osteoporosis. COMPARISON: None TECHNIQUE: Quantitative bone mineral densitometry of the hip and lumbar spine was performed with a dual energy x-ray observed absorptiometry device. Regions of interest were obtained through the left proximal femur and compared to the normal value of young adult women. Regions of interest were also obtained through the distal wrist (postsurgical changes in the spine) with an average value determined and compared to the normal value of young adult woman. The difference between your measured bone density and the bone density of a normal young woman is expressed in standard deviations as the T score. Similarly, your measured bone is also compared to age and race matched values, and expressed in standard deviations as the Z score. According to World Health Organization criteria: T-score of -1.0 or higher is normal. T-score between -1.0 and -2.5 is low bone density or osteopenia. T-score of -2.5 or lower is abnormally low, compatible with osteoporosis. FINDINGS: Femoral neck Density: 0.495 g/cm2. T-score: -3.2 Z-score: -1.5 Total Hip Density: 0.507 g/cm2. T-score: -3.6 Z-score: -2.1 Comparison from prior examination: N/A Radius UD Density 0.192 g/cm2. T-score: -4.3 Z-score: -2.8 Radius 33% Density 0..396 g/cm2. T-score: -5.0 Z-score: -2.9 Radius Total Density 0.306 g/cm2. T-score: -5.1 Z-score: -3.0 FRACTURE RISK: The estimated 10 year risk for a hip fracture is 9 % and for a major osteoporosis-related fracture is 27 %. (FRAX web version 3.11). IMPRESSION: Osteoporosis. Report Dictated on Final Dictating Physician: MD PEREA NICHOLAS Signed Date and Time: 10/31/2017 4:04 pm Signed by: MD PEREA NICHOLAS Transcribed Date and Time: 10/31/2017 4:05 MICROALBUMIN/CREAT RATIO Collected: Status: F Source: [employer] 10/26/2017 11:29 AM SYSTEM REPOSITORY TYPE CODE TESTS RESULT OUT OF RANGE REFERENCE UNITS LAB CRTRU No Range mg/dL 36.3 Creatinine, Ur Random LAB URALB 0.0-17.0 mg/L Normal 7.0 Microalbumin , Ur Result Comment: Microalbumin concentrations <30 are considered normal, 30-300 are considered microalbuminuria (or risk of diabetic nephropathy), and >300 are considered clinical albuminuria (clinical nephropathy). Diabetes Care,27, Supplement 1, B77-00, 2004 LAB MCRAT 0.0-29.9 mg/g Microalb/Creat Ratio Normal 19.3 Performed By: #### MACR5 #### [employer] [facility] [address] [place] [address] LIPID PANEL Collected: 10/26/2017 Status: F Source: [employer] 11:23 AM SYSTEM REPOSITORY TYPE CODE TESTS RESULT OUT OF REFERENCE UNITS RANGE LAB 3CHOL < 200 mg/dL Cholesterol Normal 94 LAB 3TRIG <150 mg/dL Triglyceride Normal 56 LAB HDLC 40-60 mg/dL HDL Normal Cholesterol 57 LAB LDL4 <100 mg/dL Low Density Normal Lipoprotein 26 LAB CHLHD NA Chol/HDL 2 Result Comment: Ref Range: < 3 Low Risk for CHD 3-6 Mod Risk for CHD > 6 High Risk for CHD Performed By: #### HA1C2, HEMDF, LIPD2, CMP3 #### [facility] [employer] [facility] [address] [place] [address] COMP METABOLIC PANEL Collected: 10/26/2017 Status: F Source: [employer] 11:23 AM SYSTEM REPOSITORY TYPE CODE TESTS RESULT OUT OF RANGE REFERENCE UNITS LAB NA3 137-145 mmol/L Sodium Normal 143 LAB K3 3.5-5.1 mmol/L Normal Potassium 4.2 LAB CL3 98-107 mmol/L Chloride Normal 100 LAB CO23 22-30 mmol/L High Carbon Dioxide 35 LAB ANIN3 NA Anion Gap 8 LAB GLUC3 70-100 mg/dL Glucose Normal 82 LAB BUN3 7-20 mg/dL Urea Normal Nitrogen 16 LAB CRET3 0.52-1.25 mg/dL Normal Creatinine 1.06 LAB GF3BR >60 mL/min eGFR > 60.0 LAB GF3WR >60 mL/min eGFR OTHER 51.4 Result Comment: Source- MDRD equation with creatinine calibration to IDMS(NKDEP) eGFR not recommended for drug dose adjustment LAB CA3 8.4-10.4 mg/dL Calcium Normal 9.3 LAB ALB3 3.5-5.0 g/dL Albumin, Serum Normal 3.7 LAB TP3 6.3-8.2 g/dL Low Total Protein 6.0 LAB BILT3 0.2-1.3 mg/dL Normal Bilirubin,Total 0.6 LAB ALKP3 38-126 U/L Alkaline Normal Phosphatase 104 LAB ALT3 13-69 U/L ALT (SGPT) Normal 23 LAB AST3 15-46 U/L AST (SGOT) Normal 18 Performed By: #### HA1C2, HEMDF, LIPD2, CMP3 #### [facility] [address] [place] [address] HEMOGLOBIN A1C Collected: 10/26/2017 Status: F Source: [employer] 11:22 AM SYSTEM REPOSITORY TYPE CODE TESTS RESULT OUT OF RANGE REFERENCE UNITS LAB A1C2 4.0-5.7 % Normal Hemoglobin A1C 5.4 Result Comment: --HgbA1C levels may not be accurate in patients who have renal disease, received recent blood transfusions, are anemic, or who have dyshemoglobinemia. LAB EAG2 mg/dL Estimated Avg Glucose 108 Performed By: #### HA1C2, HEMDF, LIPD2, CMP3 #### [facility] [address] [place] [address] HEMOGRAM W/ AUTODIFF Collected: 10/26/2017 Status: F Source: [employer] 11:22 AM SYSTEM REPOSITORY TYPE CODE TESTS RESULT OUT OF REFERENCE UNITS RANGE LAB IWBC 3.6-10.7 10*3/uL WBC Normal 4.5 LAB RBC 3.80-5.20 10*6/uL RBC Normal 4.55 LAB HGB 11.7-16.0 g/dL Hemoglobin Normal 14.2 LAB HCT 35.0-47.0 % Hematocrit Normal 43.1 LAB MCV 79.0-98.0 fL MCV Normal 94.9 LAB MCH 26.0-34.0 pg MCH Normal 31.1 LAB MCHC 32.0-36.0 % MCHC Normal 32.8 LAB RDW 11.5-14.5 % RDW Normal 14.4 LAB PLT 140-440 10*3/uL Low Platelet 139 LAB MPV 7.4-10.4 fL MPV Normal 8.5 LAB GRAN% 40.0-80.0 % Granulocytes Normal 63.5 LAB LYMP% 20.0-40.0 % Lymphocytes Normal 21.9 LAB MONO% 2.0-10.0 % Monocytes Normal 9.4 LAB EOS% 1.0-6.0 % Eosinophils Normal 4.2 LAB BAS% 0.0-2.0 % Basophils Normal 1.0 LAB ANC 1.8-7.0 10*3/uL Abs Normal Neutrophile Cnt 2.8 LAB ALC 1.0-4.3 10*3/uL Abs Lymph Cnt Normal 1.0 LAB AMC 0.0-0.8 10*3/uL Abs Monocyte Normal Cnt 0.4 LAB AEC 0.0-0.5 10*3/uL Abs Eosin Cnt Normal 0.2 LAB ABC 0.0-0.2 10*3/uL Abs Baso Cnt Normal 0.0 Performed By: #### HA1C2, HEMDF, LIPD2, CMP3 #### [employer] [address] [place] [address] CR CHEST PA/LAT Observed: 10/10/2017 Status: F Source: [employer] 6:47 PM SYSTEM REPOSITORY Patient Name: DONAVAN JENSEN Diagnostic Radiology Exam Date/Time 10/10/2017 14:10:04 EDT Exam CR Chest PA/LAT Ordering Physician MD HEBERT DIANA Accession Number [id number] CPT4 Codes 08768 () Reason For Exam Cough Report CHEST X-RAY PA/LATERAL CLINICAL INDICATION: Cough. Wheezing. History of COPD. Frontal and lateral plain films of the chest were obtained. COMPARISON: 08/10/2016. FINDINGS: There is hyperinflation of the lungs with flattened hemidiaphragms compatible with emphysema. Coarse bilateral interstitial markings are identified. Lingular linear parenchymal scar is redemonstrated. Pulmonary vasculature is normal. The cardiac silhouette is within normal limits. No focal consolidation is seen within the lungs. No pleural effusion or pneumothorax is identified. Thoracic degenerative spondylosis. Remote upper lumbar compression fracture deformities are redemonstrated. The osseous structures are demineralized. Mid thoracic to mid lumbar lumbar fusion rods with pedicle screws are unchanged. IMPRESSION: Emphysema, unchanged. No acute consolidation. Lingular linear parenchymal scar Report Dictated on Final Dictating Physician: ARIS REYES DO, I Signed Date and Time: 10/10/2017 6:49 pm Signed by: ARIS REYES DO, I Transcribed Date and Time: 10/10/2017 6:50 PROGRESS Observed: 08/07/2017 Status: COMPLETED Source: [place] 1:23 PM [facility] REPOSITORY HNO ID: [id number] Author: Traci Orozco Service: (none) Author Type: Nurse Practitioner Type: Progress Notes Filed: 08/08/2017 8:44 AM Note Text: SUBJECTIVE: Donavan Jensen [facility] for a followup appointment for 3 month follow up. Since the last visit, Donavan Jensen states the pain has been getting worse. Current pain intensity is 8 on a scale of 0-10. Pain located in Back area and radiates down the posterior leg and down the anterior leg. Pain described as aching, numbness, radiating, sharp and stiff The patient Reports numbness, morning stiffness, leg pain and leg weakness. Symptoms interfere with physical activity, work, sexual relations, walking, sleeping, sitting, bathing, driving, cooking, household cleaning, reaching for shelves and lifting. Pain is exacerbated by sitting, standing, forward flexion, lifting, getting up from sitting, lying down and walking. Pain is mitigated by medications. . REVIEW OF SYSTEMS: Constitutional: (-) Fever (-) Night Sweats (-) Weight Gain (-) Weight Loss (-) Fatigue Cardiovascular: (-) Chest Pain (-) Palpitations (-) Lightheadedness (-) Swelling of Ankles (-) Hx Heart Surgery Respiratory: (-) Shortness of Breath (-) Cough (-) Wheezing (-) Snoring Gastrointestinal: (-) Incontinence (-) Abdominal Pain (-) Diarrhea (-) Constipation (-) Nausea/Vomiting (-) Heart Burn Endocrine: (-) Thyroid Disorder (-) Diabetes Hematologic: (-) Prolonged Bleeding (-) Easy Bruising Genitourinary: (-) Incontinence (-) Frequency (-) Urinary Urgency Skin: (-) Rashes (-) Itching (-) Other Lesions Neurologic: (-) Headache (-) Double Vision (-) Confusion (-) Paralysis Psychiatric: (-) Depression (-) Anxiety (-) Delusions (-) Hallucinations (-) Personal History of Alcohol or Substance Abuse (-) Family History of Alcohol or Substance Abuse OBJECTIVE: Pulse 70 Ht 5' 4 (1.63m) Wt 133 lb (60.3kg) SpO2 93% BMI 22.82 kg/(m2). PHYSICAL EXAMINATION: General appearance: Well appearing, in no acute distress, alert Skin: Skin color, texture, turgor normal, no rashes or lesions Neck: No pain to palpation over the cervical paraspinous muscles. No pain with neck flexion, extension, or lateral flexion Cardiovascular: Regular rate Lungs: Normal respiratory rate and rhythm Abdomen: Abdomen soft and non-tender. Back: Decreased range of motion. Spine: Reports Tenderness on palpation: Global tenderness throughout the Lumbar region. Extremities: No deformities, edema, or skin discoloration. Good capillary refill. Musculoskeletal: Bilateral upper and lower extremity strength is normal and symmetric. No atrophy or tone abnormalities are noted. Neuro: No loss of sensation is noted. Station and Gait: flexed posture and antalgic gait leaning forward Motor: Exhibits full strength in all four extremities. Trigger points: none. ASSESSMENT: Assessment : Pt reports pain throughout the lumbar region with bilateral anterior radicular sxs. Pt is not an injection candidate. She is not very active due to her pain. She takes Lyrica 75 mg BID and morphine er 15 mg BID to help manage her chronic pain She has transportation issues and relies on rides for office visits Encounter Diagnosis ICD-10-CM 1. Chronic low back pain with sciatica, sciatica laterality unspecified, unspecified back pain laterality M54.40 morphine SR (MS CONTIN, ORAMORPH SR) 15 mg 12 hr tablet G89.29 morphine SR (MS CONTIN, ORAMORPH SR) 15 mg 12 hr tablet morphine SR (MS CONTIN, ORAMORPH SR) 15 mg 12 hr tablet pregabalin (LYRICA) 75 mg capsule 2. Pseudoarthrosis of lumbar spine S32.009K morphine SR (MS CONTIN, ORAMORPH SR) 15 mg 12 hr tablet morphine SR (MS CONTIN, ORAMORPH SR) 15 mg 12 hr tablet morphine SR (MS CONTIN, ORAMORPH SR) 15 mg 12 hr tablet pregabalin (LYRICA) 75 mg capsule 3. Post-laminectomy kyphosis M96.3 morphine SR (MS CONTIN, ORAMORPH SR) 15 mg 12 hr tablet morphine SR (MS CONTIN, ORAMORPH SR) 15 mg 12 hr tablet morphine SR (MS CONTIN, ORAMORPH SR) 15 mg 12 hr tablet 4. Chronic bilateral thoracic back pain M54.6 morphine SR (MS CONTIN, ORAMORPH SR) 15 mg 12 hr tablet G89.29 morphine SR (MS CONTIN, ORAMORPH SR) 15 mg 12 hr tablet morphine SR (MS CONTIN, ORAMORPH SR) 15 mg 12 hr tablet 5. Bilateral leg pain M79.604 morphine SR (MS CONTIN, ORAMORPH SR) 15 mg 12 hr tablet M79.605 morphine SR (MS CONTIN, ORAMORPH SR) 15 mg 12 hr tablet morphine SR (MS CONTIN, ORAMORPH SR) 15 mg 12 hr tablet 6. Type 2 diabetes mellitus with peripheral neuropathy (HCC) E11.42 morphine SR (MS CONTIN, ORAMORPH SR) 15 mg 12 hr tablet pregabalin (LYRICA) 75 mg capsule OARRS website checked and validated. All prescriptions have been APPROPRIATELY filled. No suspicious activity was identified.- 08/07/2017 by Barry Resendez Ma Narcotic Agreement reviewed and signed?: N/A on August 07, 2017 Urine Panel: Lab Results Component Value Date Cannabinoid Quant, Urine <16 01/15/2017 Benzoylecognine Quant, Urine <24 01/15/2017 6-Acetylmorphine Quant, Urine <5 01/15/2017 Amphetamine Quant, Urine <5 01/15/2017 Methamphetamine Quant, Urine <8 01/15/2017 Buprenorphine Quant, Urine <20 01/15/2017 Norbuprenorphine Quant, Urine <20 01/15/2017 Methadone Quant, Urine <16 01/15/2017 EDDP Quant, Urine <6 01/15/2017 Tramadol Quant, Urine <25 01/15/2017 Desmethyltramadol Quant, Urine <20 01/15/2017 Fentanyl Quant, Urine <6 01/15/2017 Norfentanyl Quant, Urine <6 01/15/2017 Codeine Quant, Urine <11 01/15/2017 Morphine Quant, Urine 4,314 (H) 01/15/2017 Dihydrocodeine Quant, Urine <5 01/15/2017 Hydrocodone Quant, Urine <8 01/15/2017 Oxycodone Quant, Urine <5 01/15/2017 Hydromorphone Quant, Urine 41 (H) 01/15/2017 Oxymorphone Quant, Urine <5 01/15/2017 Creatinine,Ur Pain [place] 20-50 01/15/2017 Urine pH, Pain [place] 4-10 01/15/2017 Specific [place],Ur Pain [place] 1.005-1.020 01/15/2017 Oxidants,Ur Negative 01/15/2017 Specimen Quality, Ur Pain [place] Specimen quality results within acceptable limits. 01/15/2017 The pain panel was consistent PLAN: 1) Refill morphine ER 15 mg BID (fill 08/09, 09/08 and 10/08) 2) Refill Lyrica 75 mg BID x2 refills 3) Pt has transportation issues and will accommodate with x3 months of rxs 4) RTC 3 months The above plan and management options were discussed at length with patient. Patient is in agreement with the above and verbalized understanding. Traci Orozco APRN, CNP August 07, 2017 CNOV Observed: 08/07/2017 Status: COMPLETED Source: [place] 1:00 PM [facility] REPOSITORY Office Visit (PNMDNA) FREDISMICHELEKY IqbalDONAVAN ([id number]) 1950 F Date Time Provider Department 08/07/17 1:00 PM TRACI OROZCO (GALINDO) PNMDNA During your visit today, we recorded the following information about you: Pulse Weight Height 70/minute 60.3 kg 1.626 m Traci Orozco APRN.GALINDO 08/08/2017 8:44 AM Signed SUBJECTIVE: Donavan Jensen presents to [facility] Department for a followup appointment for 3 month follow up. Since the last visit, Donavan Morelandjuan pablo states the pain has been getting worse. Current pain intensity is 8 on a scale of 0-10. Pain located in Back area and radiates down the posterior leg and down the anterior leg. Pain described as aching, numbness, radiating, sharp and stiff The patient Reports numbness, morning stiffness, leg pain and leg weakness. Symptoms interfere with physical activity, work, sexual relations, walking, sleeping, sitting, bathing, driving, cooking, household cleaning, reaching for shelves and lifting. Pain is exacerbated by sitting, standing, forward flexion, lifting, getting up from sitting, lying down and walking. Pain is mitigated by medications. . REVIEW OF SYSTEMS: Constitutional: (-) Fever (-) Night Sweats (-) Weight Gain (-) Weight Loss (-) Fatigue Cardiovascular: (-) Chest Pain (-) Palpitations (-) Lightheadedness (-) Swelling of Ankles (-) Hx Heart Surgery Respiratory: (-) Shortness of Breath (-) Cough (-) Wheezing (-) Snoring Gastrointestinal: (-) Incontinence (-) Abdominal Pain (-) Diarrhea (-) Constipation (-) Nausea/Vomiting (-) Heart Burn Endocrine: (-) Thyroid Disorder (-) Diabetes Hematologic: (-) Prolonged Bleeding (-) Easy Bruising Genitourinary: (-) Incontinence (-) Frequency (-) Urinary Urgency Skin: (-) Rashes (-) Itching (-) Other Lesions Neurologic: (-) Headache (-) Double Vision (-) Confusion (-) Paralysis Psychiatric: (-) Depression (-) Anxiety (-) Delusions (-) Hallucinations (-) Personal History of Alcohol or Substance Abuse (-) Family History of Alcohol or Substance Abuse OBJECTIVE: Pulse 70 Ht 5' 4 (1.63m) Wt 133 lb (60.3kg) SpO2 93% BMI 22.82 kg/(m2). PHYSICAL EXAMINATION: General appearance: Well appearing, in no acute distress, alert Skin: Skin color, texture, turgor normal, no rashes or lesions Neck: No pain to palpation over the cervical paraspinous muscles. No pain with neck flexion, extension, or lateral flexion Cardiovascular: Regular rate Lungs: Normal respiratory rate and rhythm Abdomen: Abdomen soft and non-tender. Back: Decreased range of motion. Spine: Reports Tenderness on palpation: Global tenderness throughout the Lumbar region. Extremities: No deformities, edema, or skin discoloration. Good capillary refill. Musculoskeletal: Bilateral upper and lower extremity strength is normal and symmetric. No atrophy or tone abnormalities are noted. Neuro: No loss of sensation is noted. Station and Gait: flexed posture and antalgic gait leaning forward Motor: Exhibits full strength in all four extremities. Trigger points: none. ASSESSMENT: Assessment : Pt reports pain throughout the lumbar region with bilateral anterior radicular sxs. Pt is not an injection candidate. She is not very active due to her pain. She takes Lyrica 75 mg BID and morphine er 15 mg BID to help manage her chronic pain She has transportation issues and relies on rides for office visits Encounter Diagnosis ICD-10-CM 1. Chronic low back pain with sciatica, sciatica laterality unspecified, unspecified back pain laterality M54.40 morphine SR (MS CONTIN, ORAMORPH SR) 15 mg 12 hr tablet G89.29 morphine SR (MS CONTIN, ORAMORPH SR) 15 mg 12 hr tablet morphine SR (MS CONTIN, ORAMORPH SR) 15 mg 12 hr tablet pregabalin (LYRICA) 75 mg capsule 2. Pseudoarthrosis of lumbar spine S32.009K morphine SR (MS CONTIN, ORAMORPH SR) 15 mg 12 hr tablet morphine SR (MS CONTIN, ORAMORPH SR) 15 mg 12 hr tablet morphine SR (MS CONTIN, ORAMORPH SR) 15 mg 12 hr tablet pregabalin (LYRICA) 75 mg capsule 3. Post-laminectomy kyphosis M96.3 morphine SR (MS CONTIN, ORAMORPH SR) 15 mg 12 hr tablet morphine SR (MS CONTIN, ORAMORPH SR) 15 mg 12 hr tablet morphine SR (MS CONTIN, ORAMORPH SR) 15 mg 12 hr tablet 4. Chronic bilateral thoracic back pain M54.6 morphine SR (MS CONTIN, ORAMORPH SR) 15 mg 12 hr tablet G89.29 morphine SR (MS CONTIN, ORAMORPH SR) 15 mg 12 hr tablet morphine SR (MS CONTIN, ORAMORPH SR) 15 mg 12 hr tablet 5. Bilateral leg pain M79.604 morphine SR (MS CONTIN, ORAMORPH SR) 15 mg 12 hr tablet M79.605 morphine SR (MS CONTIN, ORAMORPH SR) 15 mg 12 hr tablet morphine SR (MS CONTIN, ORAMORPH SR) 15 mg 12 hr tablet 6. Type 2 diabetes mellitus with peripheral neuropathy (HCC) E11.42 morphine SR (MS CONTIN, ORAMORPH SR) 15 mg 12 hr tablet pregabalin (LYRICA) 75 mg capsule OARRS website checked and validated. All prescriptions have been APPROPRIATELY filled. No suspicious activity was identified.- 08/07/2017 by Barry Resendez Ma Narcotic Agreement reviewed and signed?: N/A on August 07, 2017 Urine Panel: Lab Results Component Value Date Cannabinoid Quant, Urine <16 01/15/2017 Benzoylecognine Quant, Urine <24 01/15/2017 6-Acetylmorphine Quant, Urine <5 01/15/2017 Amphetamine Quant, Urine <5 01/15/2017 Methamphetamine Quant, Urine <8 01/15/2017 Buprenorphine Quant, Urine <20 01/15/2017 Norbuprenorphine Quant, Urine <20 01/15/2017 Methadone Quant, Urine <16 01/15/2017 EDDP Quant, Urine <6 01/15/2017 Tramadol Quant, Urine <25 01/15/2017 Desmethyltramadol Quant, Urine <20 01/15/2017 Fentanyl Quant, Urine <6 01/15/2017 Norfentanyl Quant, Urine <6 01/15/2017 Codeine Quant, Urine <11 01/15/2017 Morphine Quant, Urine 4,314 (H) 01/15/2017 Dihydrocodeine Quant, Urine <5 01/15/2017 Hydrocodone Quant, Urine <8 01/15/2017 Oxycodone Quant, Urine <5 01/15/2017 Hydromorphone Quant, Urine 41 (H) 01/15/2017 Oxymorphone Quant, Urine <5 01/15/2017 Creatinine,Ur Pain Billings 20-50 01/15/2017 Urine pH, Pain Billings 4-10 01/15/2017 Specific [place],Ur Pain Billings 1.005-1.020 01/15/2017 Oxidants,Ur Negative 01/15/2017 Specimen Quality, Ur Pain Billings Specimen quality results within acceptable limits. 01/15/2017 The pain panel was consistent PLAN: 1) Refill morphine ER 15 mg BID (fill 08/09, 09/08 and 10/08) 2) Refill Lyrica 75 mg BID x2 refills 3) Pt has transportation issues and will accommodate with x3 months of rxs 4) RTC 3 months The above plan and management options were discussed at length with patient. Patient is in agreement with the above and verbalized understanding. Traci Orozco APRN, [employer] August 07, 2017 Referring Provider: TRACI OROZCO ([facility]) [[id number]] Allergies As of Date: 08/07/2017 Noted Allergy Reaction PENICILLINS 11/21/2004 4 - Hives POLLEN 2014 16 - Unknown Date Reviewed: 08/07/2017 Reviewed by: Barry Resendez Ma - Fully Assessed Reason for Visit: Established Patient [175] Cmt: 3 month follow up Primary Visit Diagnosis:Chronic low back pain with sciatica, sciatica laterality unspecified, unspecified back pain laterality [M54.40, G89.29] Other Visit Diagnoses:Pseudoarthrosis of lumbar spine [S32.009K] Post-laminectomy kyphosis [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 Earliest Fill Date: 10/08/17Disp: 60 tabletRfl: 0 [START ON 09/08/2017] morphine SR (MS CONTIN, ORAMORPH SR) 15 mg 12 hr tabletTake 1 tablet by mouth twice daily for 30 days. Earliest Fill Date: 09/08/17Disp: 60 tabletRfl: 0 [START ON 08/09/2017] morphine SR (MS CONTIN, ORAMORPH SR) 15 mg 12 hr tabletTake 1 tablet by mouth twice daily for 30 days. Earliest Fill Date: 08/09/17Disp: 60 tabletRfl: 0 [START ON 08/22/2017] pregabalin (LYRICA) 75 mg capsuleTake 1 capsule by mouth twice daily for 30 days.Disp: 60 capsuleRfl: 2 Prescriptions as of 08/07/2017 Sig: LISINOPRIL 40 MG TABLET take 1 tablet by mouth twice * CLONIDINE HCL 0.2 MG TABLET take 1 tablet by mouth three * GLIPIZIDE ER 2.5 MG TABLET, E* Take 1 tablet by mouth daily * LABETALOL 300 MG TABLET Take 2 tablets by mouth every* FUROSEMIDE 20 MG TABLET Take 1 tablet by mouth twice * SIMVASTATIN 20 MG TABLET Take 1 tablet by mouth daily * OCUVITE PRESERVISION ORAL Take by mouth. CALCITRIOL 0.25 MCG CAPSULE Take 1 capsule by mouth once * BLOOD SUGAR DIAGNOSTIC STRIPS Test blood sugar(s) 1 times d* STIOLTO RESPIMAT 2.5 MCG-2.5 * PROMETHAZINE 25 MG TABLET 1 tablet every 4-6 hours as n* POLYETHYLENE GLYCOL 3350 17 G* Take 17 g by mouth. Drink a m* LANCETS 28 GAUGE 1 Units as directed. MORPHINE ER 15 MG TABLET,EXTE* Take 1 tablet by mouth twice * MORPHINE ER 15 MG TABLET,EXTE* Take 1 tablet by mouth twice * MORPHINE ER 15 MG TABLET,EXTE* Take 1 tablet by mouth twice * PREGABALIN 75 MG CAPSULE Take 1 capsule by mouth twice* FLUNISOLIDE 25 MCG (0.025 %) * Use 2 Sprays in the nose twic* Medication notes this encounter MORPHINE ER 15 MG TABLET,EXTENDED RELEASE >> Barry Resendez Ma 08/07/2017 1:18 PM >> BARRY RESENDEZ MA Aug 07, 2017 1:18 PM duplicate MORPHINE ER 15 MG TABLET,EXTENDED RELEASE >> Barry Resendez Ma 08/07/2017 1:18 PM >> BARRY RESENDEZ MA Aug 07, 2017 1:18 PM duplicate Problem List As Of Date 08/07/2017 Noted Resolved Essential hypertension [I10] INVALID FOR* Mixed hyperlipidemia [E78.2] INVALID FOR* Type 2 diabetes mellitus with peripheral neurop*INVALID FOR* PULMON CIRCULAT DIS NEC [I28.8] INVALID FOR* More... Chronic obstructive pulmonary disease with acut*INVALID FOR* More... Depressive disorder, not elsewhere classified [*INVALID FOR*02/15/2015 Lumbago [M54.5] INVALID FOR*02/15/2015 More... Unspecified urinary incontinence [R32] INVALID FOR* Tobacco use disorder [F17.200] INVALID FOR* Osteoporosis [M81.0] INVALID FOR* CERVICAL DISC DEGEN [M50.30] INVALID FOR*02/15/2015 Anemia, unspecified [D64.9] INVALID FOR*10/14/2010 EDEMA [R60.9] INVALID FOR* ESOPHAGEAL REFLUX [K21.9] INVALID FOR* RENAL - SEE ALSO KIDNEY ARTERY STENOSIS [I70.*INVALID FOR*02/15/2015 Esophagitis, unspecified [K20.9] INVALID FOR*10/14/2010 Acute gastritis without mention of hemorrhage [*INVALID FOR*10/14/2010 Neuropathy, lumbosacral (radicular) [M54.17] INVALID FOR*02/26/2014 Cyst of kidney, acquired [N28.1] INVALID FOR*02/26/2014 More... Chronic hyponatremia [E87.1] INVALID FOR*12/14/2011 Anemia [D64.9] INVALID FOR*12/14/2011 Kyphoscoliosis [M41.9] INVALID FOR*08/15/2012 Gait abnormality [R26.9] INVALID FOR* Vertebral fracture [EBE8177] INVALID FOR*02/26/2014 DM neuro manif type II [E11.49] INVALID FOR*02/15/2015 Other acquired deformity of toe [M20.5X9] INVALID FOR*12/14/2011 Pain in limb [M79.609] INVALID FOR*12/14/2011 Dermatophytosis of nail [B35.1] INVALID FOR*08/15/2012 CKD (chronic kidney disease) stage 3, GFR 30-59* More... 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 Earliest Fill Date: 10/08/17 MORPHINE ER 15 MG TABLET,EXTENDED RE* 60 t* 0 09/08/2017 10/08/2017 Class: Print RX Route: ORAL Sig: Take 1 tablet by mouth twice daily for 30 days. Earliest Fill Date: 09/08/17 MORPHINE ER 15 MG TABLET,EXTENDED RE* 60 t* 0 08/09/2017 09/08/2017 Class: Print RX Route: ORAL Sig: Take 1 tablet by mouth twice daily for 30 days. Earliest Fill Date: 08/09/17 PREGABALIN 75 MG CAPSULE 60 c* 2 08/22/2017 09/21/2017 Class: Print RX Route: ORAL Sig: Take 1 capsule by mouth twice daily for 30 days. Medications Discontinued During This Encounter morphine SR (MS CONTIN, ORAMORPH SR)* 60 t* 0 07/02/2017 08/07/2017 Class: Print RX Route: ORAL Sig: Take 1 tablet by mouth twice daily for 30 days. Earliest Fill Date: 07/02/17 Disc: Reason for discontinue is not on file. morphine SR (MS CONTIN, ORAMORPH SR)* 60 t* 0 06/02/2017 08/07/2017 Class: Print RX Route: ORAL Sig: Take 1 tablet by mouth twice daily for 30 days. Earliest Fill Date: 06/02/17 Disc: Reason for discontinue is not on file. morphine SR (MS CONTIN, ORAMORPH SR)* 60 t* 0 05/03/2017 08/07/2017 Class: Print RX Route: ORAL Sig: Take 1 tablet by mouth twice daily for 30 days. Earliest Fill Date: 05/03/17 Disc: Reason for discontinue is not on file. pregabalin (LYRICA) 75 mg capsule 60 c* 2 05/03/2017 08/07/2017 Class: Print RX Route: ORAL Sig: Take 1 capsule by mouth twice daily for 30 days. Disc: Reason for discontinue is not on file. Encounter Status:Closed by TRACI OROZCO on 08/08/17 PROGRESS Observed: 05/03/2017 Status: COMPLETED Source: [place] 10:57 AM [facility] REPOSITORY HNO ID: [id number] Author: Traci Grant (Travel Writer) KATE Orozco.[facility] Service: (none) Author Type: Nurse Practitioner Type: Progress Notes Filed: 05/03/2017 11:57 AM Note Text: SUBJECTIVE: Donavan Jensen presents to [facility] Department for a followup appointment for back pain. Since the last visit, Donavan Jensen states the pain has been constant. Current pain intensity is 7 on a scale of 0-10. Pain located in Back area and radiates down the posterior leg and down the anterior leg. Pain described as sharp, stabbing and throbbing The patient Reports leg pain. Symptoms interfere with physical activity. Pain is exacerbated by standing and walking. Pain is mitigated by lying down. REVIEW OF SYSTEMS: Constitutional: (-) Fever (-) Night Sweats (-) Weight Gain (-) Weight Loss (-) Fatigue Cardiovascular: (-) Chest Pain (-) Palpitations (-) Lightheadedness (-) Swelling of Ankles (-) Hx Heart Surgery Respiratory: (-) Shortness of Breath (-) Cough (-) Wheezing (-) Snoring Gastrointestinal: (-) Incontinence (-) Abdominal Pain (-) Diarrhea (-) Constipation (-) Nausea/Vomiting (-) Heart Burn Endocrine: (-) Thyroid Disorder (+) Diabetes Hematologic: (-) Prolonged Bleeding (-) Easy Bruising Genitourinary: (-) Incontinence (-) Frequency (-) Urinary Urgency Skin: (-) Rashes (-) Itching (-) Other Lesions Neurologic: (-) Headache (-) Double Vision (-) Confusion (-) Paralysis Psychiatric: (-) Depression (-) Anxiety (-) Delusions (-) Hallucinations (-) Personal History of Alcohol or Substance Abuse (-) Family History of Alcohol or Substance Abuse OBJECTIVE: Pulse 79 Wt 137 lb 12.8 oz (62.5kg) SpO2 92% PHYSICAL EXAMINATION: General appearance: Well appearing, in no acute distress, alert Skin: Skin color, texture, turgor normal, no rashes or lesions Neck: No pain to palpation over the cervical paraspinous muscles. Spurling Negative. No pain with neck flexion, extension, or lateral flexion Abdomen: Abdomen soft and non-tender. Back: Intact range of motion with pain reproduction. Spine: Reports Tenderness on palpation: Global tenderness throughout the Lumbar region. Extremities: No deformities, edema, or skin discoloration. Good capillary refill. Musculoskeletal: Bilateral upper and lower extremity strength is normal and symmetric. No atrophy or tone abnormalities are noted. Neuro: No loss of sensation is noted. Station and Gait: flexed posture and antalgic gait leaning forward Motor: Exhibits full strength in all four extremities. Trigger points: none. ASSESSMENT: Assessment : Pt reports lower back pain that is sharp, stabbing, and throbbing. The pain radiates into the left groin and anterior thighs to the knee. She uses a cane to ambulate when leaving the house Pt takes morphine ER 15 mg BID and reports this helps manage her chronic pain levels Encounter Diagnosis ICD-10-CM 1. Chronic low back pain with sciatica, sciatica laterality unspecified, unspecified back pain laterality M54.40 morphine SR (MS CONTIN, ORAMORPH SR) 15 mg 12 hr tablet G89.29 morphine SR (MS CONTIN, ORAMORPH SR) 15 mg 12 hr tablet morphine SR (MS CONTIN, ORAMORPH SR) 15 mg 12 hr tablet pregabalin (LYRICA) 75 mg capsule 2. Pseudoarthrosis of lumbar spine S32.009K morphine SR (MS CONTIN, ORAMORPH SR) 15 mg 12 hr tablet morphine SR (MS CONTIN, ORAMORPH SR) 15 mg 12 hr tablet morphine SR (MS CONTIN, ORAMORPH SR) 15 mg 12 hr tablet pregabalin (LYRICA) 75 mg capsule 3. Post-laminectomy kyphosis M96.3 morphine SR (MS CONTIN, ORAMORPH SR) 15 mg 12 hr tablet morphine SR (MS CONTIN, ORAMORPH SR) 15 mg 12 hr tablet morphine SR (MS CONTIN, ORAMORPH SR) 15 mg 12 hr tablet 4. Chronic bilateral thoracic back pain M54.6 morphine SR (MS CONTIN, ORAMORPH SR) 15 mg 12 hr tablet G89.29 morphine SR (MS CONTIN, ORAMORPH SR) 15 mg 12 hr tablet morphine SR (MS CONTIN, ORAMORPH SR) 15 mg 12 hr tablet 5. Bilateral leg pain M79.604 morphine SR (MS CONTIN, ORAMORPH SR) 15 mg 12 hr tablet M79.605 morphine SR (MS CONTIN, ORAMORPH SR) 15 mg 12 hr tablet morphine SR (MS CONTIN, ORAMORPH SR) 15 mg 12 hr tablet 6. Type 2 diabetes mellitus with peripheral neuropathy (HCC) E11.42 morphine SR (MS CONTIN, ORAMORPH SR) 15 mg 12 hr tablet pregabalin (LYRICA) 75 mg capsule [facility]ARRS website checked and validated. All prescriptions have been APPROPRIATELY filled. No suspicious activity was identified.- 05/03/2017 by Evelio West Narcotic Agreement reviewed and signed?: N/A on May 03, 2017 Urine Panel: Lab Results Component Value Date Cannabinoid Quant, Urine <16 01/15/2017 Benzoylecognine Quant, Urine <24 01/15/2017 6-Acetylmorphine Quant, Urine <5 01/15/2017 Amphetamine Quant, Urine <5 01/15/2017 Methamphetamine Quant, Urine <8 01/15/2017 Buprenorphine Quant, Urine <20 01/15/2017 Norbuprenorphine Quant, Urine <20 01/15/2017 Methadone Quant, Urine <16 01/15/2017 EDDP Quant, Urine <6 01/15/2017 Tramadol Quant, Urine <25 01/15/2017 Desmethyltramadol Quant, Urine <20 01/15/2017 Fentanyl Quant, Urine <6 01/15/2017 Norfentanyl Quant, Urine <6 01/15/2017 Codeine Quant, Urine <11 01/15/2017 Morphine Quant, Urine 4314 (H) 01/15/2017 Dihydrocodeine Quant, Urine <5 01/15/2017 Hydrocodone Quant, Urine <8 01/15/2017 Oxycodone Quant, Urine <5 01/15/2017 Hydromorphone Quant, Urine 41 (H) 01/15/2017 Oxymorphone Quant, Urine <5 01/15/2017 Creatinine,Ur Pain Billings 20-50 01/15/2017 Urine pH, Pain [place] 4-10 01/15/2017 Specific [place],Ur Pain Billings 1.005-1.020 01/15/2017 Oxidants,Ur Negative 01/15/2017 Specimen Quality, Ur Pain Billings Specimen quality results within acceptable limits. 01/15/2017 The pain panel was Reviewed - No inconsistencies noted. PLAN: 1) Refill morphine ER 15 mg BID (05/03, 06/02, 07/02). Pt has transportation issues 2) Encouraged less smoking and increased activity and exercise 3) RTC 3 months The above plan and management options were discussed at length with patient. Patient is in agreement with the above and verbalized understanding. Traci Orozco APRN.CNP May 03, 2017 CNOV Observed: 05/03/2017 Status: COMPLETED Source: [place] 10:30 AM [facility] REPOSITORY Office Visit (PNMDNA) DONAVAN JENSEN ([id number]) 1950 F Date Time Provider Department 05/03/17 10:30 AM TRACI OROZCO ([place]) KERVIN During your visit today, we recorded the following information about you: Pulse Weight 79/minute 62.5 kg Traci Orozco APRN.CNP, APRN.CNP 05/03/2017 11:57 AM Signed SUBJECTIVE: Donavan Jensen presents to [facility] Department for a followup appointment for back pain. Since the last visit, Donavan Jensen states the pain has been constant. Current pain intensity is 7 on a scale of 0-10. Pain located in Back area and radiates down the posterior leg and down the anterior leg. Pain described as sharp, stabbing and throbbing The patient Reports leg pain. Symptoms interfere with physical activity. Pain is exacerbated by standing and walking. Pain is mitigated by lying down. REVIEW OF SYSTEMS: Constitutional: (-) Fever (-) Night Sweats (-) Weight Gain (-) Weight Loss (-) Fatigue Cardiovascular: (-) Chest Pain (-) Palpitations (-) Lightheadedness (-) Swelling of Ankles (-) Hx Heart Surgery Respiratory: (-) Shortness of Breath (-) Cough (-) Wheezing (-) Snoring Gastrointestinal: (-) Incontinence (-) Abdominal Pain (-) Diarrhea (-) Constipation (-) Nausea/Vomiting (-) Heart Burn Endocrine: (-) Thyroid Disorder (+) Diabetes Hematologic: (-) Prolonged Bleeding (-) Easy Bruising Genitourinary: (-) Incontinence (-) Frequency (-) Urinary Urgency Skin: (-) Rashes (-) Itching (-) Other Lesions Neurologic: (-) Headache (-) Double Vision (-) Confusion (-) Paralysis Psychiatric: (-) Depression (-) Anxiety (-) Delusions (-) Hallucinations (-) Personal History of Alcohol or Substance Abuse (-) Family History of Alcohol or Substance Abuse OBJECTIVE: Pulse 79 Wt 137 lb 12.8 oz (62.5kg) SpO2 92% PHYSICAL EXAMINATION: General appearance: Well appearing, in no acute distress, alert Skin: Skin color, texture, turgor normal, no rashes or lesions Neck: No pain to palpation over the cervical paraspinous muscles. Spurling Negative. No pain with neck flexion, extension, or lateral flexion Abdomen: Abdomen soft and non-tender. Back: Intact range of motion with pain reproduction. Spine: Reports Tenderness on palpation: Global tenderness throughout the Lumbar region. Extremities: No deformities, edema, or skin discoloration. Good capillary refill. Musculoskeletal: Bilateral upper and lower extremity strength is normal and symmetric. No atrophy or tone abnormalities are noted. Neuro: No loss of sensation is noted. Station and Gait: flexed posture and antalgic gait leaning forward Motor: Exhibits full strength in all four extremities. Trigger points: none. ASSESSMENT: Assessment : Pt reports lower back pain that is sharp, stabbing, and throbbing. The pain radiates into the left groin and anterior thighs to the knee. She uses a cane to ambulate when leaving the house Pt takes morphine ER 15 mg BID and reports this helps manage her chronic pain levels Encounter Diagnosis ICD-10-CM 1. Chronic low back pain with sciatica, sciatica laterality unspecified, unspecified back pain laterality M54.40 morphine SR (MS CONTIN, ORAMORPH SR) 15 mg 12 hr tablet G89.29 morphine SR (MS CONTIN, ORAMORPH SR) 15 mg 12 hr tablet morphine SR (MS CONTIN, ORAMORPH SR) 15 mg 12 hr tablet pregabalin (LYRICA) 75 mg capsule 2. Pseudoarthrosis of lumbar spine S32.009K morphine SR (MS CONTIN, ORAMORPH SR) 15 mg 12 hr tablet morphine SR (MS CONTIN, ORAMORPH SR) 15 mg 12 hr tablet morphine SR (MS CONTIN, ORAMORPH SR) 15 mg 12 hr tablet pregabalin (LYRICA) 75 mg capsule 3. Post-laminectomy kyphosis M96.3 morphine SR (MS CONTIN, ORAMORPH SR) 15 mg 12 hr tablet morphine SR (MS CONTIN, ORAMORPH SR) 15 mg 12 hr tablet morphine SR (MS CONTIN, ORAMORPH SR) 15 mg 12 hr tablet 4. Chronic bilateral thoracic back pain M54.6 morphine SR (MS CONTIN, ORAMORPH SR) 15 mg 12 hr tablet G89.29 morphine SR (MS CONTIN, ORAMORPH SR) 15 mg 12 hr tablet morphine SR (MS CONTIN, ORAMORPH SR) 15 mg 12 hr tablet 5. Bilateral leg pain M79.604 morphine SR (MS CONTIN, ORAMORPH SR) 15 mg 12 hr tablet M79.605 morphine SR (MS CONTIN, ORAMORPH SR) 15 mg 12 hr tablet morphine SR (MS CONTIN, ORAMORPH SR) 15 mg 12 hr tablet 6. Type 2 diabetes mellitus with peripheral neuropathy (HCC) E11.42 morphine SR (MS CONTIN, ORAMORPH SR) 15 mg 12 hr tablet pregabalin (LYRICA) 75 mg capsule [facility] website checked and validated. All prescriptions have been APPROPRIATELY filled. No suspicious activity was identified.- 05/03/2017 by Evelio West Narcotic Agreement reviewed and signed?: N/A on May 03, 2017 Urine Panel: Lab Results Component Value Date Cannabinoid Quant, Urine ANDlt;16 01/15/2017 Benzoylecognine Quant, Urine ANDlt;24 01/15/2017 6-Acetylmorphine Quant, Urine ANDlt;5 01/15/2017 Amphetamine Quant, Urine ANDlt;5 01/15/2017 Methamphetamine Quant, Urine ANDlt;8 01/15/2017 Buprenorphine Quant, Urine ANDlt;20 01/15/2017 Norbuprenorphine Quant, Urine ANDlt;20 01/15/2017 Methadone Quant, Urine ANDlt;16 01/15/2017 EDDP Quant, Urine ANDlt;6 01/15/2017 Tramadol Quant, Urine ANDlt;25 01/15/2017 Desmethyltramadol Quant, Urine ANDlt;20 01/15/2017 Fentanyl Quant, Urine ANDlt;6 01/15/2017 Norfentanyl Quant, Urine ANDlt;6 01/15/2017 Codeine Quant, Urine ANDlt;11 01/15/2017 Morphine Quant, Urine 4314 (H) 01/15/2017 Dihydrocodeine Quant, Urine ANDlt;5 01/15/2017 Hydrocodone Quant, Urine ANDlt;8 01/15/2017 Oxycodone Quant, Urine ANDlt;5 01/15/2017 Hydromorphone Quant, Urine 41 (H) 01/15/2017 Oxymorphone Quant, Urine ANDlt;5 01/15/2017 Creatinine,Ur Pain Billings 20-50 01/15/2017 Urine pH, Pain Billings 4-10 01/15/2017 Specific [place],Ur Pain Billings 1.005-1.020 01/15/2017 Oxidants,Ur Negative 01/15/2017 Specimen Quality, Ur Pain Billings Specimen quality results within acceptable limits. 01/15/2017 The pain panel was Reviewed - No inconsistencies noted. PLAN: 1) Refill morphine ER 15 mg BID (05/03, 06/02, 07/02). Pt has transportation issues 2) Encouraged less smoking and increased activity and exercise 3) RTC 3 months The above plan and management options were discussed at length with patient. Patient is in agreement with the above and verbalized understanding. 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 Earliest Fill Date: 07/02/17Disp: 60 tabletRfl: 0 [START ON 06/02/2017] morphine SR (MS CONTIN, ORAMORPH SR) 15 mg 12 hr tabletTake 1 tablet by mouth twice daily for 30 days. Earliest Fill Date: 06/02/17Disp: 60 tabletRfl: 0 morphine SR (MS CONTIN, ORAMORPH SR) 15 mg 12 hr tabletTake 1 tablet by mouth twice daily for 30 days. Earliest Fill Date: 05/03/17Disp: 60 tabletRfl: 0 pregabalin (LYRICA) 75 mg capsuleTake 1 capsule by mouth twice daily for 30 days.Disp: 60 capsuleRfl: 2 Prescriptions as of 05/03/2017 Sig: LISINOPRIL 40 MG TABLET take 1 tablet by mouth twice * CLONIDINE HCL 0.2 MG TABLET take 1 tablet by mouth three * GLIPIZIDE ER 2.5 MG TABLET, E* Take 1 tablet by mouth daily * LABETALOL 300 MG TABLET Take 2 tablets by mouth every* FUROSEMIDE 20 MG TABLET Take 1 tablet by mouth twice * SIMVASTATIN 20 MG TABLET Take 1 tablet by mouth daily * OCUVITE PRESERVISION ORAL Take by mouth. CALCITRIOL 0.25 MCG CAPSULE Take 1 capsule by mouth once * BLOOD SUGAR DIAGNOSTIC STRIPS Test blood sugar(s) 1 times d* STIOLTO RESPIMAT 2.5 MCG-2.5 * PROMETHAZINE 25 MG TABLET 1 tablet every 4-6 hours as n* POLYETHYLENE GLYCOL 3350 17 G* Take 17 g by mouth. Drink a m* LANCETS 28 GAUGE 1 Units as directed. MORPHINE ER 15 MG TABLET,EXTE* Take 1 tablet by mouth twice * MORPHINE ER 15 MG TABLET,EXTE* Take 1 tablet by mouth twice * MORPHINE ER 15 MG TABLET,EXTE* Take 1 tablet by mouth twice * PREGABALIN 75 MG CAPSULE Take 1 capsule by mouth twice* FLUNISOLIDE 25 MCG (0.025 %) * Use 2 Sprays in the nose twic* Medication notes this encounter MORPHINE ER 15 MG TABLET,EXTENDED RELEASE >> Evelio West 05/03/2017 10:57 AM >> EVELIO WEST SunMay 03, 2017 10:57 AM Duplicate MORPHINE ER 15 MG TABLET,EXTENDED RELEASE >> Evelio West 05/03/2017 10:57 AM >> EVELIO WEST Ngozi May 03, 2017 10:57 AM Duplicate FLUNISOLIDE 25 MCG (0.025 %) NASAL SPRAY >> Eveliolakisha West 05/03/2017 11:18 AM >> JENNAEVELIO May 03, 2017 11:18 AM Not taking Problem List As Of Date 05/03/2017 Noted Resolved Essential hypertension [I10] INVALID FOR* Mixed hyperlipidemia [E78.2] INVALID FOR* Type 2 diabetes mellitus with peripheral neurop*INVALID FOR* PULMON CIRCULAT DIS NEC [I28.8] INVALID FOR* More... Chronic obstructive pulmonary disease with acut*INVALID FOR* More... Depressive disorder, not elsewhere classified [*INVALID FOR*02/15/2015 Lumbago [M54.5] INVALID FOR*02/15/2015 More... Unspecified urinary incontinence [R32] INVALID FOR* Tobacco use disorder [F17.200] INVALID FOR* Osteoporosis [M81.0] INVALID FOR* CERVICAL DISC DEGEN [M50.30] INVALID FOR*02/15/2015 Anemia, unspecified [D64.9] INVALID FOR*10/14/2010 EDEMA [R60.9] INVALID FOR* ESOPHAGEAL REFLUX [K21.9] INVALID FOR* RENAL - SEE ALSO KIDNEY ARTERY STENOSIS [I70.*INVALID FOR*02/15/2015 Esophagitis, unspecified [K20.9] INVALID FOR*10/14/2010 Acute gastritis without mention of hemorrhage [*INVALID FOR*10/14/2010 Neuropathy, lumbosacral (radicular) [M54.17] INVALID FOR*02/26/2014 Cyst of kidney, acquired [N28.1] INVALID FOR*02/26/2014 More... Chronic hyponatremia [E87.1] INVALID FOR*12/14/2011 Anemia [D64.9] INVALID FOR*12/14/2011 Kyphoscoliosis [M41.9] INVALID FOR*08/15/2012 Gait abnormality [R26.9] INVALID FOR* Vertebral fracture [SAQ2086] INVALID FOR*02/26/2014 DM neuro manif type II [E11.49] INVALID FOR*02/15/2015 Other acquired deformity of toe [M20.5X9] INVALID FOR*12/14/2011 Pain in limb [M79.609] INVALID FOR*12/14/2011 Dermatophytosis of nail [B35.1] INVALID FOR*08/15/2012 CKD (chronic kidney disease) stage 3, GFR 30-59* More... 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 Earliest Fill Date: 07/02/17 MORPHINE ER 15 MG TABLET,EXTENDED RE* 60 t* 0 06/02/2017 07/02/2017 Class: Print RX Route: ORAL Sig: Take 1 tablet by mouth twice daily for 30 days. Earliest Fill Date: 06/02/17 MORPHINE ER 15 MG TABLET,EXTENDED RE* 60 t* 0 05/03/2017 06/02/2017 Class: Print RX Route: ORAL Sig: Take 1 tablet by mouth twice daily for 30 days. Earliest Fill Date: 05/03/17 PREGABALIN 75 MG CAPSULE 60 c* 2 05/03/2017 06/02/2017 Class: Print RX Route: ORAL Sig: Take 1 capsule by mouth twice daily for 30 days. Medications Discontinued During This Encounter morphine SR (MS CONTIN, ORAMORPH SR)* 60 t* 0 01/24/2017 05/03/2017 Class: Print RX Route: ORAL Sig: Take 1 tablet by mouth twice daily for 30 days. Disc: Reason for discontinue is not on file. morphine SR (MS CONTIN, ORAMORPH SR)* 60 t* 0 02/23/2017 05/03/2017 Class: Print RX Route: ORAL Sig: Take 1 tablet by mouth twice daily for 30 days. Disc: Reason for discontinue is not on file. morphine SR (MS CONTIN, ORAMORPH SR)* 60 t* 0 03/25/2017 05/03/2017 Class: Print RX Route: ORAL Sig: Take 1 tablet by mouth twice daily for 30 days. Disc: Reason for discontinue is not on file. pregabalin (LYRICA) 75 mg capsule 60 c* 2 02/06/2017 05/03/2017 Class: Call Rx Route: ORAL Sig: Take 1 capsule by mouth twice daily for 30 days. Disc: Reason for discontinue is not on file. Encounter Status:Closed by TRACI OROZCO on 05/03/17 OBSOLETE Observed: 03/11/2017 Status: COMPLETED Source: [place] 12:00 AM [facility] REPOSITORY Refill (FAMPWS) DONAVAN JENSEN ([id number]) 1950 F Date Time Provider Department 03/11/17 MICHELLE SERNA FAMPWS During your visit today, we recorded the following information about you: Yue Pimentel LPN 03/12/2017 11:38 AM Signed Due to transportation, Patient was going to start seeing PCP in [place]. Allergies As of Date: 03/11/2017 Noted Allergy Reaction PENICILLINS 11/21/2004 4 - Hives POLLEN 2014 16 - Unknown Date Reviewed: 01/15/2017 Reviewed by: Barry Resendez Ma - Fully Assessed Reason for Visit: Refill Request [94] Prescriptions as of 03/11/2017 Sig: LISINOPRIL 40 MG TABLET take 1 tablet by mouth twice * MORPHINE ER 15 MG TABLET,EXTE* Take 1 tablet by mouth twice * MORPHINE ER 15 MG TABLET,EXTE* Take 1 tablet by mouth twice * CLONIDINE HCL 0.2 MG TABLET take 1 tablet by mouth three * GLIPIZIDE ER 2.5 MG TABLET, E* Take 1 tablet by mouth daily * LABETALOL 300 MG TABLET Take 2 tablets by mouth every* FUROSEMIDE 20 MG TABLET Take 1 tablet by mouth twice * SIMVASTATIN 20 MG TABLET Take 1 tablet by mouth daily * FLUNISOLIDE 25 MCG (0.025 %) * Use 2 Sprays in the nose twic* OCUVITE PRESERVISION ORAL Take by mouth. CALCITRIOL 0.25 MCG CAPSULE Take 1 capsule by mouth once * BLOOD SUGAR DIAGNOSTIC STRIPS Test blood sugar(s) 1 times d* STIOLTO RESPIMAT 2.5 MCG-2.5 * PROMETHAZINE 25 MG TABLET 1 tablet every 4-6 hours as n* POLYETHYLENE GLYCOL 3350 17 G* Take 17 g by mouth. Drink a m* LANCETS 28 GAUGE 1 Units as directed. 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 Chronic obstructive pulmonary disease with acut*INVALID FOR* More... Depressive disorder, not elsewhere classified [*INVALID FOR*02/15/2015 Lumbago [M54.5] INVALID FOR*02/15/2015 More... Unspecified urinary incontinence [R32] INVALID FOR* Tobacco use disorder [F17.200] INVALID FOR* Osteoporosis [M81.0] INVALID FOR* CERVICAL DISC DEGEN [M50.30] INVALID FOR*02/15/2015 Anemia, unspecified [D64.9] INVALID FOR*10/14/2010 EDEMA [R60.9] INVALID FOR* ESOPHAGEAL REFLUX [K21.9] INVALID FOR* RENAL - SEE ALSO KIDNEY ARTERY STENOSIS [I70.*INVALID FOR*02/15/2015 Esophagitis, unspecified [K20.9] INVALID FOR*10/14/2010 Acute gastritis without mention of hemorrhage [*INVALID FOR*10/14/2010 Neuropathy, lumbosacral (radicular) [M54.17] INVALID FOR*02/26/2014 Cyst of kidney, acquired [N28.1] INVALID FOR*02/26/2014 More... Chronic hyponatremia [E87.1] INVALID FOR*12/14/2011 Anemia [D64.9] INVALID FOR*12/14/2011 Kyphoscoliosis [M41.9] INVALID FOR*08/15/2012 Gait abnormality [R26.9] INVALID FOR* Vertebral fracture [NIR3465] INVALID FOR*02/26/2014 DM neuro manif type II [E11.49] INVALID FOR*02/15/2015 Other acquired deformity of toe [M20.5X9] INVALID FOR*12/14/2011 Pain in limb [M79.609] INVALID FOR*12/14/2011 Dermatophytosis of nail [B35.1] INVALID FOR*08/15/2012 CKD (chronic kidney disease) stage 3, GFR 30-59* More... 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] INVALID FOR* RAUL on CPAP [G47.33, Z99.89] INVALID FOR* Chronic low back pain with sciatica [M54.40, G8*INVALID FOR* Encounter Status:Closed by YUE PIMENTEL LPN on 03/12/17 ALLERGIES ALLERGIES DATE TYPE / CODE NAME / CODE REACTION SEVERITY SOURCE 01/09/2018 Drug Penicillins/[id number] Hives Unknown [facility] Allergy/416 0476(RXNORM) Community 392029([facility] ED CT) Repository 2014 Environ/420 POLLEN UNKNOWN [facility] [id number]([facility] Main [place] ED CT) Repository 11/21/2004 Drug PENICILLINS HIVES [facility] Class/96075 [facility] [place] [facility] ENCOUNTERS ENCOUNTERS ADMIT/DISCHARGE ACCOUNT NUMBER ADMITTING ENCOUNTER LOCATION SOURCE CLASS 01/28/2018/01/29/20 [id number] Ambulatory [address] Repository 01/09/2018/01/10/20 [id number] [place] [address] [place] [address] ding:ED Repository 12/24/2017 [id number] Amb[facility] Repository 11/06/2017 [id number] Ambulatory [facility] Repository 11/05/2017/11/06/19 [id number] Ambulatory [address] Repository 10/31/2017 [id number] Ambulatory [facility] Repository 10/26/2017 [id number] Ambulatory [facility] Repository 10/25/2017 [id number] Ambulatory [facility] Repository 10/10/2017 [id number] Ambulatory [facility] Repository 08/07/2017/08/08/19 [id number] Ambulatory [address] Repository 06/15/2017 [id number] Ambulatory [facility] Repository 05/03/2017/05/04/19 [id number] Ambulatory [address] Repository PAYERS PAYERS ENCOUNTER GUARANTOR PAYER SUBSCRIBER SOURCE 01/09/2018 DONAVAN A Primary DONAVAN A [place] [id number] Insurance:MEDICAIDPol KERRIEWDOB: [facility] [place] JAKOB [facility] Number: [id number] [id number] Repository [address]Mju: (330) Date:2018-01-09 [phone] () 01/09/2018 Secondary NOT GIVENUNK [place] Insurance:SELF PAY [facility] Number: Effective Repository Date:2018-01-09 12/24/2017 Donavan A Primary [facility] Insurance:MedicaidPol BucklewDOB: System E icy Number: Effective [id number] Repository [address]: [place], [place] [address]Gwe: () 11/06/2017 Donavan A Primary [facility] Insurance:MedicaidPol BucklewDOB: System E icy Number: Effective [id number] Repository [address] Date: [place], [place] [address]Qaw: () 10/31/2017 Donavan A Primary [facility] A [facility]: Insurance:MedicaidPol BucklewDOB: System E icy Number: Effective [id number] Repository [address] Date: [place], [place] [address]Vte: () 10/26/2017 Donavan A Primary Don[facility] A [facility]: Insurance:MedicaidPol BucklewDOB: System E icy Number: Effective [id number] Repository [address] Date: [place], [place] [address]Asn: () 10/25/2017 Donavan A Primary Don[facility] A [facility]: Insurance:MedicaidPol BucklewDOB: System E icy Number: Effective [id number] Repository [address] Date: [place], [place] [address]Yzw: () 10/10/2017 Donavan A Primary Don[facility] A [facility] Insurance:MedicaidPol BucklewDOB: System E icy Number: Effective [id number] Repository [address] Date: [place], [place] [address]Twl: () 06/15/2017 Donavan A Primary Donavan A [facility] BucklewDOB: Insurance:MedicaidPol BucklewDOB: System [id number] E icy Number: Effective [id number] Date: [place], [place] [address]Mik: ()
== END 2018-01-09 18:23 | disposition home or self-care (01) ==
PROVIDERS: Emergency Provider Emergency Medicine
DX: J44.0 Chronic obstructive pulmonary disease with (acute) lower respiratory infection (principal); J44.1 Chronic obstructive pulmonary disease with (acute) exacerbation; J20.9 Acute bronchitis, unspecified; Z87.891 Personal history of nicotine dependence; E78.5 Hyperlipidemia, unspecified; E11.9 Type 2 diabetes mellitus without complications; I10 Essential (primary) hypertension; Z88.0 Allergy status to penicillin
CPT/HCPCS: 71046; 94640; 99283